=== PATIENT | male | born 1970 | race Caucasian/White ===

== ENCOUNTER → 2016-10-18 | Outpatient (REF) | payer OTHER ==
[2016-10-18 12:15] LABS: ALBUMIN 3.7 GM/DL (3.2-5.2); ALBUMIN/GLOBULIN RATIO 1.09 (1.00-1.93); ALKALINE PHOSPHATASE 84 U/L (45-117); ALT/SGPT 38 U/L (12-78); ANION GAP 4 MEQ/L (8-16); AST/SGOT 12 U/L (15-37); BILIRUBIN,TOTAL 0.4 MG/DL (0.2-1.0); BLOOD UREA NITROGEN 14 MG/DL (7-18); CALCIUM LEVEL 8.8 MG/DL (8.5-10.1); CARBON DIOXIDE LEVEL 28 MEQ/L (21-32); CHLORIDE LEVEL 105 MEQ/L (98-107); CHOLESTEROL LEVEL 275 MG/DL (<200); CREATININE FOR GFR 0.72 MG/DL (0.70-1.30); GLOMERULAR FILTRATION RATE > 60.0 (>60); GLUCOSE, FASTING 102 MG/DL (70-105); POTASSIUM SERUM 4.6 MEQ/L (3.5-5.1); SODIUM LEVEL 137 MEQ/L (136-145); TOTAL PROTEIN 7.1 GM/DL (6.4-8.2); TRIGLYCERIDES LEVEL 159 MG/DL (<150)
== END ==
LOC: M SFHCCLAY 07:14
PROVIDERS: ATTEND Family Medicine
DX: I10 Essential (primary) hypertension (principal); E78.2 Mixed hyperlipidemia; Z12.5 Encounter for screening for malignant neoplasm of prostate

== ENCOUNTER 2016-11-21 16:59 | Emergency (ER) | payer OTHER, BC ==
[~2016-11-21] VITALS: Ht 165.1 cm; Wt 110.5 kg
[2016-11-21] MEDS ORDERED: ATOR1TAB21 PO (17:17)
[2016-11-21] MEDS ORDERED: LISI10TA2 PO (17:17)
[2016-11-21] MEDS ORDERED: AMLO2.5T PO (17:17)
[2016-11-21] MEDS ORDERED: NAPROXEN 250 MG TAB PO ONE (17:30)
[2016-11-21] MEDS ORDERED: NAPR500T PO (18:08)
[2016-11-21 18:16] VITALS: BP 157/90
--- NOTE | 2016-11-21 18:37 | REP ---
HISTORY: Pain after hyperextension injury. COMPARISON: None. FINDINGS: There is no acute fracture, dislocation, subluxation, or joint effusion. Signed by Honorio Fink DO 11/21/2016 07:52 P
== END 2016-11-21 18:18 | disposition home or self-care (01) ==
LOC: M ED 16:59
DX: M77.11 Lateral epicondylitis, right elbow (principal); I10 Essential (primary) hypertension; E78.00 Pure hypercholesterolemia, unspecified; F17.210 Nicotine dependence, cigarettes, uncomplicated; Z88.8 Allergy status to other drugs, medicaments and biological substances; Z79.899 Other long term (current) drug therapy

== ENCOUNTER 2017-04-07 23:34 | Emergency (ER) | payer BC, OTHER ==
[~2017-04-07] VITALS: Ht 165.1 cm; Wt 102.2 kg
[~2017-04-07 23:34] MED LIST: AMLO2.5T PO; ATOR1TAB21 PO; LISI10TA2 PO; NAPR500T PO
[2017-04-07] MEDS ORDERED: ASPI81CH32 PO (23:51)
[2017-04-08] MEDS ORDERED: ASPIRIN 81 MG CHEW TABLET As Ordered ONE (00:02)
[2017-04-08] MEDS: NITROGLYCERIN 0.4 MG SUBL TABLET SL PRN ×5 (00:03→00:31)
[2017-04-08] MEDS ORDERED: NITROGLYCERIN 0.4 MG SUBL TABLET As Ordered ONE (00:03)
[2017-04-08] MEDS ORDERED: ONDANSETRON 4MG/2ML VIAL (J2405) IV ONE (00:15)
[2017-04-08] MEDS ORDERED: ASPIRIN 81 MG CHEW TABLET PO ONE (00:15)
[2017-04-08 00:28] LABS: BASO # 0.1 10^3/uL (0.0-0.2); BASO % 0.9 % (0.0-1.0); EOS # 0.5 10^3/uL (0.0-0.50); EOS % 5.9 % (0.0-3.0); IMMATURE GRANULOCYTE % 0.7 % (0-0); LYMPH # 2.4 10^3/uL (1.5-4.5); LYMPH % 26.4 % (24.0-44.0); MEAN CORPUSCULAR HEMOGLOBIN 31.4 pg (27.0-33.0); MEAN CORPUSCULAR HGB CONC 34.5 g/dl (32.0-36.5); MEAN CORPUSCULAR VOLUME 90.9 fl (80.0-96.0); MONO # 0.8 10^3/uL (0.0-0.8); MONO % 8.5 % (0.0-5.0); NEUTROPHILS # 5.3 10^3/uL (1.8-7.7); NEUTROPHILS % 57.6 % (36.0-66.0); PLATELET COUNT, AUTOMATED 266 10^3/uL (150-450); RED CELL DISTRIBUTION WIDTH 12.9 % (11.5-14.5); WHITE BLOOD COUNT 9.2 10^3/uL (4.0-10.0)
[2017-04-08] MEDS ORDERED: MORPHINE 4 MG/ML 1ML SYRINGE IV PRN (01:00)
[2017-04-08] MEDS ORDERED: NS 500 ML IV ONE (01:15)
[2017-04-08 01:31] LABS: ANION GAP 7 MEQ/L (8-16); BLOOD UREA NITROGEN 12 MG/DL (7-18); CARBON DIOXIDE LEVEL 29 MEQ/L (21-32); CHLORIDE LEVEL 104 MEQ/L (98-107); CREATININE FOR GFR 0.76 MG/DL (0.70-1.30); GLOMERULAR FILTRATION RATE > 60.0 (>60); GLUCOSE, FASTING 155 MG/DL (70-105); POTASSIUM SERUM 3.9 MEQ/L (3.5-5.1); SODIUM LEVEL 140 MEQ/L (136-145)
[2017-04-08] MEDS ORDERED: HEPARIN DRIP 25,000 UNITS in APPROPRIATE DILUENT 1 EA IV SCH ×2 (02:09→02:48)
[2017-04-08] MEDS ORDERED: HEPARIN SOD (PORCINE) 5000 UNITS/ML VIAL IV ONE (02:15)
[2017-04-08] MEDS ORDERED: CLOPIDOGREL 300 MG TAB (PLAVIX) PO ONE (02:15)
[2017-04-08] MEDS ORDERED: NITROGLYCERIN 2% OINT 1 GM *U/D* PKT TOP ONE (02:15)
[2017-04-08] MEDS ORDERED: METOPROLOL TART 25 MG TABLET PO ONE (02:15)
[2017-04-08 02:22] LABS: INR 0.97
[2017-04-08 03:11] VITALS: BP 121/60
--- NOTE | 2017-04-08 09:33 | REP ---
Clinical: Chest pain . Comparison: 12/09/2008 . Technique: PA and lateral. Findings: The mediastinum and cardiac silhouette are normal. The lung davis demonstrate chronic-appearing changes including evidence for prior granulomas disease without acute consolidation, effusion, or pneumothorax. The skeletal structures are intact and normal. Impression: Chronic stable changes. No acute cardiopulmonary process. Signed by Filiberto Contreras MD 04/08/2017 09:25 A
== END 2017-04-08 03:16 | disposition short-term general hospital (02) ==
LOC: M ED 23:34
DX: I20.0 Unstable angina (principal); I10 Essential (primary) hypertension; E78.5 Hyperlipidemia, unspecified; F17.200 Nicotine dependence, unspecified, uncomplicated; Z79.82 Long term (current) use of aspirin; Z79.899 Other long term (current) drug therapy
CPT/HCPCS: 71020; 80048; 82550; 82553; 85025; 85610; 85730; 93041; 94760; 96361; 96374; 96375; 99285; J2405

== ENCOUNTER 2017-04-19 08:14 | Observation (INO) | payer BC, OTHER ==
[~2017-04-19] VITALS: Ht 165.1 cm; Wt 113.0 kg
[~2017-04-19 08:14] MED LIST changes: +ASPI81CH32 PO
[2017-04-19] MEDS: NS 1,000 ML IV SCH ×2 (08:57→16:55)
[2017-04-19] MEDS ORDERED: ONDANSETRON 4MG/2ML VIAL (J2405) IV ONE (09:00)
[2017-04-19] MEDS: MORPHINE 4 MG/ML 1ML SYRINGE IV PRN ×2 (09:00→10:35)
[2017-04-19 09:39] LABS: BASO # 0.1 10^3/uL (0.0-0.2); BASO % 0.6 % (0.0-1.0); EOS # 0.5 10^3/uL (0.0-0.50); EOS % 3.2 % (0.0-3.0); IMMATURE GRANULOCYTE % 0.4 % (0-0); LYMPH # 1.8 10^3/uL (1.5-4.5); LYMPH % 11.8 % (24.0-44.0); MEAN CORPUSCULAR HEMOGLOBIN 31.2 pg (27.0-33.0); MEAN CORPUSCULAR VOLUME 91.7 fl (80.0-96.0); MONO # 0.9 10^3/uL (0.0-0.8); MONO % 6.1 % (0.0-5.0); NEUTROPHILS # 11.7 10^3/uL (1.8-7.7); NEUTROPHILS % 77.9 % (36.0-66.0); PLATELET COUNT, AUTOMATED 282 10^3/uL (150-450); RED CELL DISTRIBUTION WIDTH 12.7 % (11.5-14.5); WHITE BLOOD COUNT 15.1 10^3/uL (4.0-10.0)
--- NOTE | 2017-04-19 09:41 | REP ---
ACUTE ABDOMINAL SERIES: 04/19/2017 COMPARISON: Chest x-ray 04/08/2017. CLINICAL HISTORY: Abdominal pain. FINDINGS: PA CHEST: Lung davis are adequately inflated. There is no effusion, infiltrate, atelectasis or mass. I see no pleural thickening, apical scarring or pneumothorax. Heart size not enlarged. Aorta and airway grossly intact. Mediastinal and hilar contours stable. Visualized bones without acute finding. FLAT UPRIGHT ABDOMEN: Gas pattern is nonspecific. There is scattered stool and gas in the right transverse colon, less in the left colon. Small bowel loops are mostly fluid-filled. There are a few air-fluid levels in nondilated small bowel loops in the upper abdomen. This may reflect some gastroenteritis or ileus but no sign of obstruction. No free air. No abnormal calcifications or mass. Bones grossly intact. IMPRESSION: 1. Nonspecific gas pattern with a few air-fluid levels in nondilated small bowel loops upper abdomen, most small bowel loops fluid-filled. 2. No dilated colon, free air or mass. No obstruction. No abnormal calcifications. 3. PA chest without acute finding. Signed by Aric Elena MD 04/19/2017 08:26 P
[2017-04-19 09:52] LABS: ALBUMIN 3.9 GM/DL (3.2-5.2); ALBUMIN/GLOBULIN RATIO 1.15 (1.00-1.93); ALKALINE PHOSPHATASE 99 U/L (45-117); ALT/SGPT 34 U/L (12-78); ANION GAP 8 MEQ/L (8-16); AST/SGOT 10 U/L (7-37); BILIRUBIN,DIRECT 0.1 MG/DL (0.0-0.2); BILIRUBIN,TOTAL 0.4 MG/DL (0.2-1.0); BLOOD UREA NITROGEN 14 MG/DL (7-18); CALCIUM LEVEL 8.9 MG/DL (8.5-10.1); CARBON DIOXIDE LEVEL 26 MEQ/L (21-32); CHLORIDE LEVEL 106 MEQ/L (98-107); CREATININE FOR GFR 0.87 MG/DL (0.70-1.30); GLOMERULAR FILTRATION RATE > 60.0 (>60); GLUCOSE, FASTING 127 MG/DL (70-105); POTASSIUM SERUM 4.4 MEQ/L (3.5-5.1); SODIUM LEVEL 140 MEQ/L (136-145); TOTAL PROTEIN 7.3 GM/DL (6.4-8.2)
[2017-04-19] MEDS ORDERED: GASTROGRAFIN SOLUTION 30ML (Q9963) PO ONE ×2 (11:20→11:50)
[2017-04-19] MEDS ORDERED: ISOVUE-370 76% 100ML VIAL (Q9967) As Ordered ONE (12:31)
[2017-04-19] MEDS ORDERED: metroNIDAZOLE 500 MG in APPROPRIATE DILUENT 1 EA IV ONE (13:15)
[2017-04-19] MEDS ORDERED: CIPROFLOXACIN 400 MG in APPROPRIATE DILUENT 1 EA IV ONE (13:15)
--- NOTE | 2017-04-19 13:34 | REP ---
CT abdomen and pelvis with IV and oral contrast: 04/19/2017. Clinical history: Diverticulitis. Abdominal pain. Technique: Oral gastrographin mixture 10 ml in 290 ml saline for two doses per our bowel contrast protocol. Scanning through the abdomen and pelvis with both coronal and sagittal reconstructions provided. Comparison: Abdominal series today. Findings: CT abdomen: The lung bases showed minimal dependent atelectatic change without infiltrate or effusion. Heart not enlarged. There is no pericardial thickening or effusion. Liver not grossly enlarged. There is no splenomegaly, focal hepatic or splenic lesion nor intrahepatic biliary dilatation. No ascites. Gallbladder without calcified stone or mass. Pancreas unremarkable. Adrenal glands intact. Kidneys show function without obstruction, stone, mass or cyst. The aorta has a few calcifications without aneurysm. Small bowel loops are without dilatation, inflammatory change or other abnormality. Adnexa is seen and normal in the abdomen just above the level of the iliac crest. The right colon, transverse colon, both flexures and proximal left colon unremarkable, however the mid left colon shows a zone of edema, wall thickening and infiltration of pericolonic fat. There is fluid tracking along the lateral conal fascia and Gerota's fascia with evidence for diverticulitis with at least one and inflamed diverticula. Lung window review of all CT slices in the abdomen and pelvis shows no evidence of perforation or free air. Bone windows show no evidence of an acute bony finding in the lumbar, lower thoracic spine, their posterior elements or the visualized ribs. CT pelvis: Sacrum, pelvis, hips and SI joints grossly intact. Bladder partially filled without mass or wall thickening. There are calcifications in the prostate which is not grossly enlarged. There is no ventral or inguinal hernia and no pathologic sized inguinal adenopathy. Distal left colon and sigmoid show no sign of colitis or diverticulitis. Small bowel loops in the deep pelvis were unremarkable. A few scattered inguinal nodes are seen not enlarged. Impression: 1. Left mid colon with diverticulitis, pericolonic stranding and edema in the fat and some small amounts of adjacent fluid tracking in the peritoneal gutter and along Gerota's fascia. There is no perforation or abscess. Remainder of the colon grossly intact. No other significant finding. Signed by Aric Elena MD 04/19/2017 08:38 P
[2017-04-19] MEDS ORDERED: ONDANSETRON 4MG/2ML VIAL (J2405) IV PRN (14:00)
[2017-04-19] MEDS ORDERED: ACETAMINOPHEN TAB 650MG DOSE (2X325MG) PO PRN (14:00)
[2017-04-19] MEDS ORDERED: PERCOCET 5MG/325MG TAB PO PRN (14:00)
[2017-04-19] MEDS ORDERED: AMLO5TAB2 PO (14:24)
[2017-04-19] MEDS ORDERED: ROSU40TA PO (14:28)
[2017-04-19] MEDS ORDERED: LISI-542 PO (14:28)
[2017-04-19] MEDS ORDERED: CLOP75TA2 PO (14:28)
[2017-04-19] MEDS ORDERED: METO1TAB87 PO (14:28)
[2017-04-19] MEDS ORDERED: NITR4TASL SL (14:28)
[2017-04-19] MEDS ORDERED: NITROGLYCERIN 0.4 MG SUBL TABLET SL PRN (14:45)
[2017-04-19] MEDS: MORPHINE 2 MG/ML 1ML SYRINGE IV PRN ×2 (14:48→16:56)
--- NOTE | 2017-04-19 14:50 | HPEPDOC ---
[facility] Medical History & Physical Date of Admission Apr 19, 2017 Primary Care Physician: Cristo Olguin DO Attending Physician: CHERY OGDEN MD History and Physical CHIEF COMPLAINT: ABDOMINAL PAIN HISTORY OF PRESENT ILLNESS: 46 yo male s/p cardiac stent placement x2, recently released from [facility] a few days ago. Was at home last evening, in normal state of health and states that as he changed portion in his chair suddenly developed LLQ Abdominal pain that has been unchanged through the morning hours, and decided to come to ED for further evaluation. Denies: F/C/R, N/V/D, cough, productive sputum, hemoptysis, melena, hematochezia , dysuria, frequency or hematuria. PAST MEDICAL HISTORY: PR / CAD with recent cardiac stent placement x 2 Hypertension hyperlipidemia H/o Tobbacco use Occasional EtOH use PAST SURGICAL HISTORY: Cardiac stent placement x2 SOCIAL HISTORY: Lives at home with his , recently has quit smoking. Occasional EtOH use. Denies illicit drug use Denies sick contacts FAMILY HISTORY: Noncontributory ALLERGIES: Please see below. REVIEW OF SYSTEMS: CONSTITUTIONAL: No fever, chills, weight loss, nausea or vomiting . HEENT: No headache, lightheadedness, blurred or loss of vision. No difficulty with speech or swallow. CARDIOVASCULAR: No chest pain, palpitations, paroxysmal nocturnal dyspnea or lower extremity edema RESPIRATORY: No cough, productive sputum, wheeze or hemoptysis GENITOURINARY: No dysuria, frequency or hematuria MUSCULOSKELETAL: No bone, muscle or joint pain. GASTROINTESTINAL: Left lower quadrant abdominal pain started suddenly last evening. He states is become progressively worse throughout the day today. No Nausea, vomiting, change in appetite. Bowel movements are regular without hematochezia or melena. No bladder or bowel incontinence. SKIN: No complaint of lesions, abrasions or rashes NEUROLOGICAL: No blurred vision, headaches, parasthesias or paralysis PSYCHIATRIC: No depression, anxiety, audiovisual hallucinations. No suicidal ideations. ENDOCRINE: Denies history of diabetes or thyroid disorder. No history of endocrine abnormalities. HEMATOLOGIC/ONCOLOGIC: No history of bleeding or bruising disorder. No history of VTE LYMPHATIC: No lumps, bumps or swelling of neck, axilla or groin. No night sweats or weight loss. HOME MEDICATIONS: Please see below. PHYSICAL EXAMINATION: VITAL SIGNS: See below GENERAL APPEARANCE: NAD, AXOx3. HEENT: PERRLA, throat clear, neck supple, no JVD. CARDIOVASCULAR: RRR. LUNGS: CTA Bilaterally. ABDOMEN: soft, Normoactive BS, LLQ Tenderness without rebound. MUSCULOSKELETAL: no gross deformities. EXTREMITIES: no edema no calf tenderness. NEUROLOGICAL: CN's II-XII grossly intact, no gross motor/sensory deficits. PSYCHIATRIC: negative. LABORATORY DATA: See below. IMAGING: CT abd/pelvis: 1. Left mid colon with diverticulitis, pericolonic stranding and edema in the fat and some small amounts of adjacent fluid tracking in the peritoneal gutter and along Gerota's fascia. There is no perforation or abscess. Remainder of the colon grossly intact. No other significant finding. Abdominal series with one view CXR: 1. Nonspecific gas pattern with a few air-fluid levels in nondilated small bowel loops upper abdomen, most small bowel loops fluid-filled. 2. No dilated colon, free air or mass. No obstruction. No abnormal calcifications. 3. PA chest without acute finding. MICROBIOLOGY: Please see below. IPRESSION: 36-year-old gentleman status post coronary artery stent placement within the last week or so. Presents today to the emergency department with worsening left lower quadrant pain and diverticulitis seen on CT of the abdomen and pelvis. PROBLEM LIST: 1. Acute abdominal pain with acute diverticulitis. 2. Leukocytosis every does not appear to be acutely septic. 3. Recent PR / CAD with recent cardiac stent placement x 2: Without chest pain or related coronary symptoms 4. Hypertension 5. hyperlipidemia 6. H/o Tobbacco use 7. Occasional EtOH use: Does not appear to be having any withdrawal PLAN: Admit to general medical floor. Mechanical soft diet. IV Cipro and Flagyl. Pain control and repeat labs in the morning. DVT PROPHYLAXIS: Aspirin, Plavix teds sequentials and encouraged to ambulate. DISPOSITION: We'll observe him overnight. Anticipate home discharge tomorrow. Vital Signs Vital Signs Date Time Temp Pulse Resp B/P (MAP) Pulse Ox O2 Delivery O2 Flow Rate FiO2 04/19/17 12:59 80 95 04/19/17 12:47 116/66 (83) 04/19/17 12:20 16 04/19/17 08:44 98.4 Room Air Laboratory Data Labs 24H Laboratory Tests 2 04/19/17 08:30: Immature Granulocyte % (Auto) 0.4H, White Blood Count 15.1H, Red Blood Count 5.16, Hemoglobin 16.1, Hematocrit 47.3, Mean Corpuscular Volume 91.7, Mean Corpuscular Hemoglobin 31.2, Mean Corpuscular Hemoglobin Concent 34.0, Red Cell Distribution Width 12.7, Platelet Count 282, Neutrophils (%) (Auto) 77.9H, Lymphocytes (%) (Auto) 11.8L, Monocytes (%) (Auto) 6.1H, Eosinophils (%) (Auto) 3.2H, Basophils (%) (Auto) 0.6, Neutrophils # (Auto) 11.7H, Lymphocytes # (Auto ) 1.8, Monocytes # (Auto) 0.9H, Eosinophils # (Auto) 0.5, Basophils # (Auto) 0.1 , Immature Granulocyte # (Auto) 0.1H, Nucleated Red Blood Cells % (auto) 0.0, Anion Gap 8, Glomerular Filtration Rate > 60.0, Lactic Acid Level 1.0, Calcium Level 8.9, Aspartate Amino Transf (AST/SGOT) 10, Alanine Aminotransferase (ALT/ SGPT) 34, Alkaline Phosphatase 99, Total Bilirubin 0.4, Direct Bilirubin 0.1, Total Protein 7.3, Albumin 3.9, Albumin/Globulin Ratio 1.15, Lipase 102 04/19/17 10:31: Urine Appearance CLEAR, Urine Color YELLOW, Urine pH 5.0, Urine Specific [place] 1.019, Urine Protein NEGATIVE, Urine Glucose (UA) NEGATIVE, Urine Ketones NEGATIVE, Urine Urobilinogen 0.2, Urine Bilirubin NEGATIVE, Urine Leukocyte Esterase NEGATIVE, Urine Blood 1+H, Urine Nitrite NEGATIVE, Urine WBC (Auto) 0, Urine RBC (Auto) 3, Urine Hyaline Casts (Auto) 0, Urine Bacteria (Auto ) NEGATIVE, Urine Squamous Epithelial Cells 0, Urine Mucus (Auto) SMALL, Urine Sperm (Auto) CBC/BMP Laboratory Tests 04/19/17 08:30 Red Blood Count 5.16, Mean Corpuscular Volume 91.7, Mean Corpuscular Hemoglobin 31.2, Mean Corpuscular Hemoglobin Concent 34.0, Red Cell Distribution Width 12.7 , Neutrophils (%) (Auto) 77.9 H, Lymphocytes (%) (Auto) 11.8 L, Monocytes (%) ( Auto) 6.1 H, Eosinophils (%) (Auto) 3.2 H, Basophils (%) (Auto) 0.6, Neutrophils # (Auto) 11.7 H, Lymphocytes # (Auto) 1.8, Monocytes # (Auto) 0.9 H , Eosinophils # (Auto) 0.5, Basophils # (Auto) 0.1 Home Medications Scheduled (Aspirin 81 Low Dose) 81 Mg Chw, 81 MG PO QHS Amlodipine Besylate (Amlodipine Besylate) 5 Mg Tab, 5 MG PO DAILY Ciprofloxacin (Cipro) 500 Mg/5 Ml Jamee, 500 MG PO BID Clopidogrel Bisulfate (Clopidogrel) 75 Mg Tab, 75 MG PO DAILY Lisinopril (Lisinopril) 5 Mg Tab, 5 MG PO DAILY Metoprolol Tartrate (Metoprolol Tartrate) 25 Mg Tab, 25 MG PO BID Rosuvastatin Calcium (Rosuvastatin Calcium) 40 Mg Tab, 40 MG PO DAILY Scheduled PRN Metronidazole (Flagyl) 500 Mg Tab, 500 MG PO Q8H PRN for DAILY FOR 10 DAYS Nitroglycerin (Nitrostat) 0.4 Mg Subl, 0.4 MG SL NITRO PRN for CHEST PAIN Oxycodone/Acetaminophen (Oxycodone/Acetaminophen 5-325 mg) 1 Tab Tab, 1 TAB PO Q4HP PRN for PAIN Allergies Uncoded Allergies: muscle relaxants (Adverse Reaction, Intermediate, 04/19/17) KARLEY Owens DO Apr 19, 2017 14:50
[2017-04-19 15:45] VITALS: BP 140/73
[2017-04-19] MEDS: PERCOCET 5MG/325MG TAB PO PRN (19:58)
[2017-04-19] MEDS: METOPROLOL TART 25 MG TABLET PO SCH (19:59)
[2017-04-19] MEDS ORDERED: ASPIRIN 81 MG CHEW TABLET PO SCH (21:00)
[2017-04-19 22:00] VITALS: BP 128/61
[2017-04-19] MEDS: metroNIDAZOLE 500 MG in APPROPRIATE DILUENT 1 EA IV SCH (22:51)
[2017-04-20] MEDS ORDERED: CIPROFLOXACIN 400 MG in APPROPRIATE DILUENT 1 EA IV SCH (01:00)
[2017-04-20] MEDS: NS 1,000 ML IV SCH (01:44)
[2017-04-20] MEDS: PERCOCET 5MG/325MG TAB PO PRN ×2 (01:45→06:43)
[2017-04-20 06:00] VITALS: BP 126/56
[2017-04-20] MEDS: metroNIDAZOLE 500 MG in APPROPRIATE DILUENT 1 EA IV SCH (06:42)
[2017-04-20 07:16] LABS: MEAN CORPUSCULAR HGB CONC 33.6 g/dl (32.0-36.5); MEAN CORPUSCULAR VOLUME 92.2 fl (80.0-96.0); PLATELET COUNT, AUTOMATED 240 10^3/uL (150-450); RED CELL DISTRIBUTION WIDTH 12.9 % (11.5-14.5); WHITE BLOOD COUNT 14.1 10^3/uL (4.0-10.0)
[2017-04-20 07:37] LABS: ANION GAP 6 MEQ/L (8-16); BLOOD UREA NITROGEN 12 MG/DL (7-18); CALCIUM LEVEL 8.3 MG/DL (8.5-10.1); CARBON DIOXIDE LEVEL 28 MEQ/L (21-32); CHLORIDE LEVEL 104 MEQ/L (98-107); GLOMERULAR FILTRATION RATE > 60.0 (>60); GLUCOSE, FASTING 112 MG/DL (70-105); POTASSIUM SERUM 3.9 MEQ/L (3.5-5.1); SODIUM LEVEL 138 MEQ/L (136-145)
[2017-04-20] MEDS: METOPROLOL TART 25 MG TABLET PO SCH (08:53)
[2017-04-20 08:54] VITALS: BP 126/56
[2017-04-20] MEDS ORDERED: CLOPIDOGREL 75 MG TAB PO SCH (09:00)
[2017-04-20] MEDS ORDERED: LISINOPRIL 5 MG TAB PO SCH (09:00)
[2017-04-20] MEDS ORDERED: amLODIPine 5 MG TAB PO SCH (09:00)
[2017-04-20] MEDS ORDERED: ROSUVASTATIN 10 MG TAB (CRESTOR) PO SCH (09:00)
[2017-04-20] MEDS ORDERED: CIPR500S PO (09:53)
[2017-04-20] MEDS ORDERED: OXYC1TAB23 PO (09:53)
[2017-04-20] MEDS ORDERED: FLAG500T PO (09:53)
--- NOTE | 2017-04-20 10:28 | DS.PDOC ---
Discharge Summary General Date of Admission Apr 19, 2017 at 13:52 Date of Discharge 04/20/2017 Primary Care Physician: Cristo Olguin DO Attending Physician: KARLEY QUIROZ DO Discharge Summary CONSULTS: None PROCEDURES: None COMPLICATIONS: None ADMISSION / DISCHARGE DIAGNOSIS: 1. Acute adominal pain related to Acute diverticulitis 2. hisotory of CT / CAD with recent cardiac stent placement x 2 3, Hypertension 4. hyperlipidemia 5. H/o Tobbacco use 6. Occasional EtOH use BRIEF HOSPITAL COURSE: 46-year-old gentleman admitted on April 19 for acute abdominal pain, mild leukocytosis and diverticulitis. He's done well, remained afebrile. His leukocytosis is improved. We advanced his diet. She was able to tolerate. And he 'll be discharged on oral antibiotics and Percocet for pain when necessary. For further information regarding intake physical. Labs diagnostics please refer the H&P. PHYSICAL EXAMINATION ON DISCHARGE: VITAL SIGNS: Please see below. GENERAL: NAD, A&OX3 HEENT: PERRLA, throat clear, neck supple, no JVD CARDIOVASCULAR EXAMINATION: RRR RESPIRATORY EXAMINATION: CTA bilaterally ABDOMINAL EXAMINATION: Still some mild left lower quadrant tenderness without rebound. Normoactive bowel sounds. EXTREMITIES: no edema no calf tenderness SKIN: intact NEUROLOGICAL EXAMINATION: CN'S II-XII grossly intact PSYCHIATRIC EXAMINATION: stable DISCHARGE MEDICATIONS: See below DISCHARGE CONDITION: Good DISPOSITION: Discharged home DISCHARGE INSTRUCTIONS: Activity: As tolerated Diet: Regular Follow up: One week with Dr. Olguin. Seek medical attention should symptoms worsen or progress. Voiced understanding by patient and/or caregiver. TRANSITION OF CARE ISSUES: 1. Once diverticulitis is resolved, he'll likely need outpatient referral for colonoscopy TIME SPENT ON DISCHARGE: greater than 35 minutes Please CC: Dr. Olguin Vital Signs/I&Os Vital Signs Date Time Temp Pulse Resp B/P (MAP) Pulse Ox O2 Delivery O2 Flow Rate FiO2 04/20/17 10:09 20 Room Air 04/20/17 08:54 77 126/56 04/20/17 06:00 96.3 96 I&O- Last 24 Hours up to 6 AM 04/21/17 06:00 Intake Total 1680 ml Output Total 0 ml Balance 1680 ml Laboratory Data Labs 24H Laboratory Tests 2 04/19/17 10:31: Urine Appearance CLEAR, Urine Color YELLOW, Urine pH 5.0, Urine Specific [place] 1.019, Urine Protein NEGATIVE, Urine Glucose (UA) NEGATIVE, Urine Ketones NEGATIVE, Urine Urobilinogen 0.2, Urine Bilirubin NEGATIVE, Urine Leukocyte Esterase NEGATIVE, Urine Blood 1+H, Urine Nitrite NEGATIVE, Urine WBC (Auto) 0, Urine RBC (Auto) 3, Urine Hyaline Casts (Auto) 0, Urine Bacteria (Auto ) NEGATIVE, Urine Squamous Epithelial Cells 0, Urine Mucus (Auto) SMALL, Urine Sperm (Auto) 04/20/17 07:02: Nucleated Red Blood Cells % (auto) 0.0, Blood Urea Nitrogen 12, Creatinine 0.70 , Sodium Level 138, Potassium Level 3.9, Chloride Level 104, Carbon Dioxide Level 28, Anion Gap 6L, Glomerular Filtration Rate > 60.0, Calcium Level 8.3L, Phosphorus Level 3.0, Albumin 3.0#L CBC/BMP Laboratory Tests 04/20/17 07:02 Red Blood Count 4.61, Mean Corpuscular Volume 92.2, Mean Corpuscular Hemoglobin 31.0, Mean Corpuscular Hemoglobin Concent 33.6, Red Cell Distribution Width 12.9 , Anion Gap 6 L Discharge Medications Scheduled (Aspirin 81 Low Dose) 81 Mg Chw, 81 MG PO QHS, (Reported) Amlodipine Besylate (Amlodipine Besylate) 5 Mg Tab, 5 MG PO DAILY, (Reported) Ciprofloxacin (Cipro) 500 Mg/5 Ml Jamee, 500 MG PO BID Clopidogrel Bisulfate (Clopidogrel) 75 Mg Tab, 75 MG PO DAILY, (Reported) Lisinopril (Lisinopril) 5 Mg Tab, 5 MG PO DAILY, (Reported) Metoprolol Tartrate (Metoprolol Tartrate) 25 Mg Tab, 25 MG PO BID, (Reported) Rosuvastatin Calcium (Rosuvastatin Calcium) 40 Mg Tab, 40 MG PO DAILY, (Reported ) Scheduled PRN Metronidazole (Flagyl) 500 Mg Tab, 500 MG PO Q8H PRN for DAILY FOR 10 DAYS Nitroglycerin (Nitrostat) 0.4 Mg Subl, 0.4 MG SL NITRO PRN for CHEST PAIN, ( Reported) Oxycodone/Acetaminophen (Oxycodone/Acetaminophen 5-325 mg) 1 Tab Tab, 1 TAB PO Q4HP PRN for PAIN Allergies Uncoded Allergies: muscle relaxants (Adverse Reaction, Intermediate, 04/19/17) hallucinations QUIROZ,KARLEY B DO Apr 20, 2017 10:28
== END 2017-04-20 13:30 | disposition home or self-care (01) ==
LOC: M ED 08:14 → M ED INP 13:52 → M MS5PR 15:29
PROVIDERS: ADMIT Hospitalist; ATTEND Internal Medicine
DX: K57.32 Diverticulitis of large intestine without perforation or abscess without bleeding (principal); D72.829 Elevated white blood cell count, unspecified; I25.10 Atherosclerotic heart disease of native coronary artery without angina pectoris; I25.2 Old myocardial infarction; I10 Essential (primary) hypertension; E78.5 Hyperlipidemia, unspecified; Z87.891 Personal history of nicotine dependence; Z98.61 Coronary angioplasty status; Z79.899 Other long term (current) drug therapy; Z88.8 Allergy status to other drugs, medicaments and biological substances
CPT/HCPCS: 36415; 74022; 74177; 80048; 80069; 80076; 81001; 83605; 83690; 85025; 85027; 93041; 96365; 96366; 96375; 96376; 99285; J0744; J2405; Q9963; Q9967

== ENCOUNTER 2017-08-01 11:01 | Emergency (ER) | payer BC, OTHER ==
[2017-08-01] MEDS: MORPHINE 10 MG/ML 1ML VIAL (J2270) IM (11:30)
== END 2017-08-01 13:02 | disposition home or self-care (01) ==
LOC: M ED 11:01
DX: M76.891 Other specified enthesopathies of right lower limb, excluding foot (principal); I25.10 Atherosclerotic heart disease of native coronary artery without angina pectoris; I25.2 Old myocardial infarction; Z95.5 Presence of coronary angioplasty implant and graft; Z88.8 Allergy status to other drugs, medicaments and biological substances; Z79.899 Other long term (current) drug therapy; Z79.82 Long term (current) use of aspirin; Z79.02 Long term (current) use of antithrombotics/antiplatelets
CPT/HCPCS: J2270

== ENCOUNTER 2017-09-17 10:29 | Emergency (ER) | payer BC, OTHER ==
[2017-09-17 11:44] LABS: BASO # 0.1 10^3/uL (0.0-0.2); BASO % 0.9 % (0.0-1.0); EOS # 0.3 10^3/uL (0.0-0.50); EOS % 4.4 % (0.0-3.0); HEMOGLOBIN 14.1 g/dl (13.5-17.5); IMMATURE GRANULOCYTE % 0.6 % (0-3.0); LYMPH # 1.9 10^3/uL (1.5-4.5); LYMPH % 27.2 % (24.0-44.0); MEAN CORPUSCULAR HEMOGLOBIN 30.5 pg (27.0-33.0); MEAN CORPUSCULAR HGB CONC 33.6 g/dl (32.0-36.5); MEAN CORPUSCULAR VOLUME 90.7 fl (80.0-96.0); MONO # 0.8 10^3/uL (0.0-0.8); NEUTROPHILS # 3.9 10^3/uL (1.8-7.7); NEUTROPHILS % 55.9 % (36.0-66.0); PLATELET COUNT, AUTOMATED 226 10^3/uL (150-450); RED BLOOD COUNT 4.63 10^6/uL (4.30-6.10); RED CELL DISTRIBUTION WIDTH 13.2 % (11.5-14.5)
[2017-09-17 12:10] LABS: ALBUMIN 3.6 GM/DL (3.2-5.2); ALBUMIN/GLOBULIN RATIO 1.06 (1.00-1.93); ALKALINE PHOSPHATASE 66 U/L (45-117); ALT/SGPT 42 U/L (12-78); ANION GAP 4 MEQ/L (8-16); AST/SGOT 18 U/L (7-37); BILIRUBIN,DIRECT < 0.1 MG/DL (0.0-0.2); BILIRUBIN,TOTAL 0.3 MG/DL (0.2-1.0); BLOOD UREA NITROGEN 12 MG/DL (7-18); CALCIUM LEVEL 8.5 MG/DL (8.5-10.1); CARBON DIOXIDE LEVEL 28 MEQ/L (21-32); CHLORIDE LEVEL 107 MEQ/L (98-107); CREATININE FOR GFR 0.74 MG/DL (0.70-1.30); GLOMERULAR FILTRATION RATE > 60.0 (>60); GLUCOSE, FASTING 107 MG/DL (70-100); POTASSIUM SERUM 4.2 MEQ/L (3.5-5.1); SODIUM LEVEL 139 MEQ/L (136-145)
[2017-09-17 13:45] LABS: CK-MB VALUE MASS 1.1 NG/ML (<3.6); CPK CREATINE PHOSPHOKINASE 91 U/L (39-308); NT-PRO BNP 63 PG/ML (<125); TROPONIN I < 0.02 NG/ML (< 0.10)
== END 2017-09-17 14:31 | disposition home or self-care (01) ==
LOC: M ED 10:29
DX: R53.83 Other fatigue (principal); R00.2 Palpitations; R00.1 Bradycardia, unspecified; I25.10 Atherosclerotic heart disease of native coronary artery without angina pectoris; I25.2 Old myocardial infarction; I10 Essential (primary) hypertension; Z95.5 Presence of coronary angioplasty implant and graft; Z82.49 Family history of ischemic heart disease and other diseases of the circulatory system; Z82.3 Family history of stroke; Z80.9 Family history of malignant neoplasm, unspecified; Z79.82 Long term (current) use of aspirin; Z79.899 Other long term (current) drug therapy; Z88.8 Allergy status to other drugs, medicaments and biological substances
CPT/HCPCS: 71046

== ENCOUNTER → 2017-09-17 | Outpatient (CLI) | payer BC, OTHER | LOC: M EKG 15:01 | DX: R00.2 Palpitations (principal) | CPT/HCPCS: 93225 ==

== ENCOUNTER → 2017-10-15 | Outpatient (REF) | payer OTHER ==
[2017-10-15 12:04] LABS: ALBUMIN 3.9 GM/DL (3.2-5.2); ALBUMIN/GLOBULIN RATIO 1.11 (1.00-1.93); ALKALINE PHOSPHATASE 79 U/L (45-117); ALT/SGPT 47 U/L (12-78); ANION GAP 7 MEQ/L (8-16); AST/SGOT 21 U/L (7-37); BILIRUBIN,TOTAL 0.4 MG/DL (0.2-1.0); BLOOD UREA NITROGEN 14 MG/DL (7-18); CALCIUM LEVEL 8.9 MG/DL (8.5-10.1); CARBON DIOXIDE LEVEL 26 MEQ/L (21-32); CHLORIDE LEVEL 107 MEQ/L (98-107); CHOLESTEROL LEVEL 153 MG/DL (<200); CHOLESTEROL RISK RATIO 2.942 (<5); CREATININE FOR GFR 0.76 MG/DL (0.70-1.30); GLOMERULAR FILTRATION RATE > 60.0 (>60); GLUCOSE, FASTING 94 MG/DL (70-100); HDL CHOLESTEROL 52 MG/DL (>40); LDL CHOLESTEROL 63.2 MG/DL (<100); NON-HDL-C 101 MG/DL; POTASSIUM SERUM 4.8 MEQ/L (3.5-5.1); SODIUM LEVEL 140 MEQ/L (136-145); THYROID STIMULATING HORMONE 0.867 uIU/ML (0.358-3.740); TOTAL PROTEIN 7.4 GM/DL (6.4-8.2); TRIGLYCERIDES LEVEL 189 MG/DL (<150)
== END ==
LOC: M SFHCCLAY 09:42
DX: E78.2 Mixed hyperlipidemia (principal); I10 Essential (primary) hypertension

== ENCOUNTER 2018-01-25 07:50 | Emergency (ER) | payer BC, OTHER ==
[2018-01-25] MEDS: LIDOCAINE 1% MDV 20ML VIAL SC (08:15)
== END 2018-01-25 09:27 | disposition home or self-care (01) ==
LOC: M ED 07:50
DX: L05.01 Pilonidal cyst with abscess (principal); I10 Essential (primary) hypertension; I25.2 Old myocardial infarction; E78.00 Pure hypercholesterolemia, unspecified; K57.92 Diverticulitis of intestine, part unspecified, without perforation or abscess without bleeding; Z88.8 Allergy status to other drugs, medicaments and biological substances; Z87.891 Personal history of nicotine dependence; Z79.899 Other long term (current) drug therapy; Z79.82 Long term (current) use of aspirin; Z79.02 Long term (current) use of antithrombotics/antiplatelets; Z95.5 Presence of coronary angioplasty implant and graft
CPT/HCPCS: 87186

== ENCOUNTER 2018-03-16 12:56 | Emergency (ER) | payer BC, OTHER ==
[2018-03-16 14:07] LABS: HEMATOCRIT 43.8 % (42.0-52.0); HEMOGLOBIN 14.7 g/dl (13.5-17.5); MEAN CORPUSCULAR HEMOGLOBIN 30.4 pg (27.0-33.0); MEAN CORPUSCULAR HGB CONC 33.6 g/dl (32.0-36.5); MEAN CORPUSCULAR VOLUME 90.7 fl (80.0-96.0); PLATELET COUNT, AUTOMATED 246 10^3/uL (150-450); RED BLOOD COUNT 4.83 10^6/uL (4.30-6.10); RED CELL DISTRIBUTION WIDTH 13.2 % (11.5-14.5); WHITE BLOOD COUNT 9.5 10^3/uL (4.0-10.0)
[2018-03-16 14:27] LABS: ANION GAP 7 MEQ/L (8-16); BLOOD UREA NITROGEN 12 MG/DL (7-18); CALCIUM LEVEL 8.7 MG/DL (8.5-10.1); CARBON DIOXIDE LEVEL 28 MEQ/L (21-32); CHLORIDE LEVEL 107 MEQ/L (98-107); CREATININE FOR GFR 0.76 MG/DL (0.70-1.30); GLOMERULAR FILTRATION RATE > 60.0 (>60); GLUCOSE, FASTING 87 MG/DL (70-100); POTASSIUM SERUM 4.5 MEQ/L (3.5-5.1); SODIUM LEVEL 142 MEQ/L (136-145)
== END 2018-03-16 15:56 | disposition home or self-care (01) ==
LOC: M ED 12:56
DX: R04.0 Epistaxis (principal); I10 Essential (primary) hypertension; I25.10 Atherosclerotic heart disease of native coronary artery without angina pectoris; Z79.899 Other long term (current) drug therapy; Z79.82 Long term (current) use of aspirin; Z88.8 Allergy status to other drugs, medicaments and biological substances
CPT/HCPCS: 80048

== ENCOUNTER → 2018-09-10 | Outpatient (REF) | payer OTHER ==
[~2018-09-10] MED LIST changes: -AMLO2.5T PO; +AMLO2.5T3 PO; +AMLO5TAB6 PO; -ASPI81CH32 PO; +ASPI81CH33 PO; +BACT800T5 PO; +CIPR500S PO; +CLOP75TA2 PO; +FLAG500T PO; +LISI-542 PO; +METO1TAB87 PO; +NAPR-837 PO; -NAPR500T PO; +NITR4TASL SL; +OSTETAB3 PO; +OXYC1TAB23 PO; +PERC5TAB12 PO; +ROSU40TA3 PO
[2018-09-10 11:39] LABS: BASO # 0.1 10^3/uL (0.0-0.2); BASO % 0.9 % (0.0-1.0); EOS # 0.3 10^3/uL (0.0-0.50); EOS % 3.1 % (0.0-3.0); HEMATOCRIT 34.6 % (42.0-52.0); HEMOGLOBIN 11.2 g/dl (13.5-17.5); LYMPH # 1.7 10^3/uL (1.5-4.5); LYMPH % 21.5 % (24.0-44.0); MEAN CORPUSCULAR HEMOGLOBIN 29.6 pg (27.0-33.0); MEAN CORPUSCULAR HGB CONC 32.4 g/dl (32.0-36.5); MEAN CORPUSCULAR VOLUME 91.3 fl (80.0-96.0); MONO # 0.3 10^3/uL (0.0-0.8); MONO % 3.8 % (0.0-5.0); NEUTROPHILS # 5.6 10^3/uL (1.8-7.7); NEUTROPHILS % 69.3 % (36.0-66.0); PLATELET COUNT, AUTOMATED 297 10^3/uL (150-450); RED BLOOD COUNT 3.79 10^6/uL (4.30-6.10); WHITE BLOOD COUNT 8.1 10^3/uL (4.0-10.0)
[2018-09-10 12:12] LABS: ALBUMIN 3.7 GM/DL (3.2-5.2); ALT/SGPT 34 U/L (12-78); BILIRUBIN,TOTAL 0.3 MG/DL (0.2-1.0); BLOOD UREA NITROGEN 10 MG/DL (7-18); CALCIUM LEVEL 8.3 MG/DL (8.5-10.1); CARBON DIOXIDE LEVEL 28 MEQ/L (21-32); CHLORIDE LEVEL 104 MEQ/L (98-107); CREATININE FOR GFR 0.88 MG/DL (0.70-1.30); GLOMERULAR FILTRATION RATE > 60.0 (>60); GLUCOSE, FASTING 223 MG/DL (70-100); POTASSIUM SERUM 4.3 MEQ/L (3.5-5.1); SODIUM LEVEL 138 MEQ/L (136-145); TOTAL PROTEIN 7.1 GM/DL (6.4-8.2)
[2018-09-10 14:23] LABS: HEMOGLOBIN A1c 7.1 %
== END ==
LOC: M SFHCCLAY 09:08
PROVIDERS: ATTEND Nurse Practitioner Family
DX: I10 Essential (primary) hypertension (principal); R73.9 Hyperglycemia, unspecified

== ENCOUNTER 2019-03-09 10:01 | Emergency (ER) | payer OTHER, BC ==
[~2019-03-09] VITALS: Ht 165.1 cm; Wt 119.7 kg
[~2019-03-09 10:01] MED LIST changes: +LISI10TA15 PO; -LISI10TA2 PO; -ROSU40TA3 PO; +ROSU40TA4 PO
[2019-03-09] MEDS ORDERED: LISI10TA15 PO (10:12)
[2019-03-09] MEDS ORDERED: AMOX875T2 PO (10:12)
[2019-03-09] MEDS ORDERED: ALBUTEROL SULFATE 2.5 MG/0.5 ML INH NEB SOLN NEB ONE (10:30)
[2019-03-09] MEDS ORDERED: NS 500 ML IV ONE (10:30)
[2019-03-09 10:43] LABS: BASO # 0.1 10^3/uL (0.0-0.2); BASO % 0.8 % (0.0-1.0); EOS # 0.5 10^3/uL (0.0-0.5); HEMATOCRIT 46.2 % (42.0-52.0); HEMOGLOBIN 15.3 g/dl (13.5-17.5); LYMPH # 1.9 10^3/uL (1.5-5.0); MEAN CORPUSCULAR HEMOGLOBIN 29.4 pg (27.0-33.0); MEAN CORPUSCULAR HGB CONC 33.1 g/dl (32.0-36.5); MEAN CORPUSCULAR VOLUME 88.7 fl (80.0-96.0); MONO # 0.9 10^3/uL (0.0-0.8); MONO % 7.3 % (0.0-5.0); NEUTROPHILS # 8.6 10^3/uL (1.5-8.5); NEUTROPHILS % 71.4 % (36.0-66.0); PLATELET COUNT, AUTOMATED 284 10^3/uL (150-450); RED BLOOD COUNT 5.21 10^6/uL (4.30-6.10)
[2019-03-09] MEDS ORDERED: ISOVUE-370 76% 100ML VIAL (Q9967) As Ordered ONE (11:12)
[2019-03-09 11:15] LABS: ALBUMIN 3.9 GM/DL (3.2-5.2); BILIRUBIN,DIRECT 0.1 MG/DL (0.0-0.2); BILIRUBIN,TOTAL 0.5 MG/DL (0.2-1.0); TOTAL PROTEIN 7.8 GM/DL (6.4-8.2)
[2019-03-09] MEDS ORDERED: IPRATROPIUM 0.5MG/ALBUTEROL 2.5MG INH SOL UD 3ML (DUONEB)(J7620) NEB ONE ×2 (11:45→12:45)
--- NOTE | 2019-03-09 12:22 | REP ---
CT ABDOMEN/PELVIS WITH IV CONTRAST: TECHNIQUE: Axial contrast enhanced images from the lung bases to the pubic symphysis using 100 mL Isovue 370 intravenous contrast material with multiplanar reformations. Visualized lung bases demonstrate some mild accentuation of interstitial markings in the right middle lobe and left lower lobe, which may represent some mild atelectatic change or pneumonitis. There is diffuse fatty infiltration of the liver. The gallbladder is grossly unremarkable. There is no evidence of biliary dilatation. The spleen is normal in size with no intrinsic abnormality. The adrenals demonstrate no mass. The pancreas is unremarkable. Kidneys are unremarkable with no hydronephrosis. There is atherosclerotic calcification of the abdominal aorta without aneurysm. There is no adenopathy in the abdomen or pelvis. However, there is a mildly enlarged right inguinal lymph node, which is enhancing and measures 1.4 cm in short-axis dimension. This may be inflamed. There is no free air or free fluid in the abdomen or pelvis. No bowel wall thickening is seen. The appendix is normal. There is sigmoid diverticulosis without evidence of acute diverticulitis. The urinary bladder is not well distended and appears grossly unremarkable. Prostatic calcifications are noted. There are mild degenerative changes of the spine. IMPRESSION: Possible minor pneumonitis or atelectatic change right middle lobe and left lower lobe. Diffuse fatty infiltration of the liver. No free air or free fluid. Normal appendix. No abdominal wall hernia. In the right inguinal region, there is a mildly enlarged enhancing lymph node, 1.4 cm in short-axis dimension, possibly inflamed. Electronically Signed by Johnie Maurer MD 03/09/2019 02:38 P
[2019-03-09] MEDS ORDERED: methylPREDNISolone INJ 125 MG/2 ML VIAL (J2930) IV ONE (12:45)
[2019-03-09] MEDS ORDERED: PRED20TA PO (13:19)
[2019-03-09] MEDS ORDERED: PROAAER10 INH (13:19)
[2019-03-09 13:46] VITALS: BP 149/81
--- NOTE | 2019-03-10 06:50 | ED PDOC ---
Post-Departure Follow-Up vee norris faxed formal report of ct abd/p for fu Javier Post MD Mar 10, 2019 06:50
== END 2019-03-09 13:56 | disposition home or self-care (01) ==
LOC: M ED 10:01
DX: K76.0 Fatty (change of) liver, not elsewhere classified (principal); S39.011A Strain of muscle, fascia and tendon of abdomen, initial encounter; X58.XXXA Exposure to other specified factors, initial encounter; Y92.89 Other specified places as the place of occurrence of the external cause; J98.11 Atelectasis; R06.2 Wheezing; I25.2 Old myocardial infarction; I10 Essential (primary) hypertension; K57.92 Diverticulitis of intestine, part unspecified, without perforation or abscess without bleeding; E78.5 Hyperlipidemia, unspecified; Z88.8 Allergy status to other drugs, medicaments and biological substances; Z79.82 Long term (current) use of aspirin; Z79.899 Other long term (current) drug therapy
CPT/HCPCS: 74177; 80047; 80076; 81001; 83690; 85025; 94640; 96361; 96374; 99284; J2930; Q9967

== ENCOUNTER → 2019-03-19 | Outpatient (REF) | payer OTHER ==
[~2019-03-19] MED LIST changes: +AMOX875T2 PO; +PRED20TA PO; +PROAAER10 INH
[2019-03-19 12:02] LABS: BASO # 0.1 10^3/uL (0.0-0.2); BASO % 0.9 % (0.0-1.0); EOS # 0.3 10^3/uL (0.0-0.5); HEMATOCRIT 45.9 % (42.0-52.0); HEMOGLOBIN 14.8 g/dl (13.5-17.5); LYMPH # 2.1 10^3/uL (1.5-5.0); LYMPH % 22.7 % (24.0-44.0); MEAN CORPUSCULAR HEMOGLOBIN 29.4 pg (27.0-33.0); MEAN CORPUSCULAR HGB CONC 32.2 g/dl (32.0-36.5); MEAN CORPUSCULAR VOLUME 91.1 fl (80.0-96.0); MONO # 0.6 10^3/uL (0.0-0.8); MONO % 6.6 % (0.0-5.0); NEUTROPHILS % 65.4 % (36.0-66.0); PLATELET COUNT, AUTOMATED 286 10^3/uL (150-450); RED BLOOD COUNT 5.04 10^6/uL (4.30-6.10); WHITE BLOOD COUNT 9.2 10^3/uL (4.0-10.0)
[2019-03-19 12:20] LABS: ALBUMIN 3.9 GM/DL (3.2-5.2); ALT/SGPT 42 U/L (12-78); BILIRUBIN,TOTAL 0.6 MG/DL (0.2-1.0); BLOOD UREA NITROGEN 15 MG/DL (7-18); CALCIUM LEVEL 9.1 MG/DL (8.5-10.1); CARBON DIOXIDE LEVEL 28 MEQ/L (21-32); CHLORIDE LEVEL 103 MEQ/L (98-107); CHOLESTEROL LEVEL 226 MG/DL (<200); CHOLESTEROL RISK RATIO 4.035 (<5); CREATININE FOR GFR 0.82 MG/DL (0.70-1.30); GLOMERULAR FILTRATION RATE > 60.0 (>60); GLUCOSE, FASTING 130 MG/DL (70-100); HDL CHOLESTEROL 56 MG/DL (>40); LDL CHOLESTEROL 123 MG/DL (<100); NON-HDL-C 170 MG/DL; POTASSIUM SERUM 4.2 MEQ/L (3.5-5.1); SODIUM LEVEL 137 MEQ/L (136-145); TOTAL PROTEIN 7.2 GM/DL (6.4-8.2); TRIGLYCERIDES LEVEL 233 MG/DL (<150)
[2019-03-19 12:43] LABS: HEMOGLOBIN A1c 7.2 %
== END ==
LOC: M SFHCCLAY 08:38
PROVIDERS: ATTEND Nurse Practitioner Family
DX: E11.9 Type 2 diabetes mellitus without complications (principal); I10 Essential (primary) hypertension; E78.2 Mixed hyperlipidemia; I25.10 Atherosclerotic heart disease of native coronary artery without angina pectoris

== ENCOUNTER → 2019-06-27 | Outpatient (REF) | payer OTHER | LOC: M LAB REF 11:32 | PROVIDERS: ATTEND Physician Assistant | DX: J02.9 Acute pharyngitis, unspecified (principal) ==

== ENCOUNTER → 2019-08-11 | Outpatient (REF) | payer OTHER | LOC: M SFHCCLAY 14:02 | PROVIDERS: ATTEND Nurse Practitioner Family | DX: R05 Cough (principal); J40 Bronchitis, not specified as acute or chronic | CPT/HCPCS: 87486; 87581; 87633; 87798; U0002 ==

== ENCOUNTER → 2020-05-18 | Outpatient (REF) | payer OTHER ==
[~2020-05-18] MED LIST changes: +AMLO1TAB24 PO; -AMLO5TAB6 PO
[2020-05-18 11:31] LABS: BASO # 0.1 10^3/uL (0.0-0.2); BASO % 0.9 % (0.0-1.0); EOS # 0.3 10^3/uL (0.0-0.5); EOS % 3.1 % (0.0-3.0); HEMATOCRIT 47.9 % (42.0-52.0); HEMOGLOBIN 15.4 g/dl (13.5-17.5); LYMPH # 1.8 10^3/uL (1.5-5.0); LYMPH % 19.2 % (24.0-44.0); MEAN CORPUSCULAR HEMOGLOBIN 29.6 pg (27.0-33.0); MEAN CORPUSCULAR HGB CONC 32.2 g/dl (32.0-36.5); MEAN CORPUSCULAR VOLUME 91.9 fl (80.0-96.0); MONO # 0.7 10^3/uL (0.0-0.8); MONO % 7.4 % (0.0-5.0); NEUTROPHILS # 6.4 10^3/uL (1.5-8.5); NEUTROPHILS % 68.9 % (36.0-66.0); PLATELET COUNT, AUTOMATED 224 10^3/uL (150-450); RED BLOOD COUNT 5.21 10^6/uL (4.30-6.10); WHITE BLOOD COUNT 9.3 10^3/uL (4.0-10.0)
[2020-05-18 11:44] LABS: HEMOGLOBIN A1c 6.1 %
[2020-05-18 11:59] LABS: ALBUMIN 4.1 GM/DL (3.2-5.2); ALT/SGPT 29 U/L (12-78); BILIRUBIN,TOTAL 0.5 MG/DL (0.2-1.0); BLOOD UREA NITROGEN 16 MG/DL (7-18); CALCIUM LEVEL 9.4 MG/DL (8.5-10.1); CARBON DIOXIDE LEVEL 29 MEQ/L (21-32); CHLORIDE LEVEL 105 MEQ/L (98-107); CHOLESTEROL LEVEL 161 MG/DL (<200); CHOLESTEROL RISK RATIO 2.875 (<5); CREATININE FOR GFR 0.86 MG/DL (0.70-1.30); GLOMERULAR FILTRATION RATE > 60.0 (>60); GLUCOSE, FASTING 98 MG/DL (70-100); HDL CHOLESTEROL 56 MG/DL (>40); LDL CHOLESTEROL 76 MG/DL (<100); NON-HDL-C 105 MG/DL; POTASSIUM SERUM 4.5 MEQ/L (3.5-5.1); SODIUM LEVEL 137 MEQ/L (136-145); TOTAL PROTEIN 7.3 GM/DL (6.4-8.2); TRIGLYCERIDES LEVEL 145 MG/DL (<150)
== END ==
LOC: M SFHCCLAY 07:18
PROVIDERS: ATTEND Nurse Practitioner Family
DX: I10 Essential (primary) hypertension (principal); E78.2 Mixed hyperlipidemia; I25.10 Atherosclerotic heart disease of native coronary artery without angina pectoris; E11.9 Type 2 diabetes mellitus without complications; R10.31 Right lower quadrant pain

== ENCOUNTER → 2020-05-24 | Outpatient (REF) | payer OTHER ==
[2020-05-24 16:41] LABS: MALB URINE SIEMENS 37.3 MG/L; MAU/CREAT RATIO 29.3 MCG/MG (0.0-30.0)
== END ==
LOC: M SFHCCLAY 15:52
PROVIDERS: ATTEND Nurse Practitioner Family
DX: E11.9 Type 2 diabetes mellitus without complications (principal)

== ENCOUNTER → 2020-05-25 | Outpatient (CLI) | payer BC ==
--- NOTE | 2020-05-25 07:38 | REP ---
INDICATION: R31.9 HEMATURIA COMPARISON: None TECHNIQUE: Real time fletcher scale ultrasound examination using curved array transducer. FINDINGS: Bilateral kidneys are normal in contour, size, echogenicity, reniform shape and intrarenal vascularity. No hydronephrosis, nephrolithiasis, significant cystic or renal mass lesion. No perinephric fluid collections are identified. Right kidney measures 11.8 x 6.7 x 7.1 cm (RI 0.58). Left kidney measures 11.7 x 7.7 x 5.8 cm (RI 0.63) with incidental 1.1 cm midpole cyst noted. Bladder appears normal and currently measures 9.4 x 6.7 x 3.7 cm (152 cc) without wall thickening or mass lesion. IMPRESSION: Normal renal ultrasound. <Electronically signed by Filiberto Contreras > 05/25/20 0742
== END ==
LOC: M WHC 06:40
PROVIDERS: ATTEND Nurse Practitioner Family
DX: R31.9 Hematuria, unspecified (principal)

== ENCOUNTER → 2020-06-08 | Outpatient (CLI) | payer BC ==
[~2020-06-08] MED LIST changes: -LISI-542 PO; +LISI-898 PO
--- NOTE | 2020-06-08 08:33 | REP ---
INDICATION: R07.9, CHEST PAIN COMPARISON: 09/17/2017 TECHNIQUE: PA and lateral. FINDINGS: The mediastinum and cardiac silhouette are normal. The lung davis are clear and without acute consolidation, effusion, or pneumothorax. The skeletal structures are intact and normal. IMPRESSION: No acute cardiopulmonary process. If the patient remains symptomatic consider chest CT for further investigation. <Electronically signed by Filiberto Contreras > 06/08/20 [id number]
== END ==
LOC: M CLY 08:14
PROVIDERS: ATTEND Nurse Practitioner Family
DX: R07.9 Chest pain, unspecified (principal)

== ENCOUNTER → 2020-06-18 | Outpatient (CLI) | payer BC, OTHER ==
[~2020-06-18] MED LIST changes: +GASTROGRAFIN SOLUTION 30ML (Q9963) As Ordered ONE; +ISOVUE-370 76% 100ML VIAL As Ordered ONE
--- NOTE | 2020-06-19 06:05 | REP ---
INDICATION: RLQ ABD PAIN, CHEST PAIN COMPARISON: None TECHNIQUE: Axial noncontrast images from the thoracic inlet to the upper abdomen with coronal and sagittal reformations. This CT examination was performed using the following dose reduction techniques: Automated exposure control, adjustment of mA and/or kv according to the patient's size, and use of iterative reconstruction technique. FINDINGS: The bilateral lung davis are well aerated, symmetric and essentially clear. No acute consolidation, significant nodule, or mass lesion. No pleural effusion. No pneumothorax. Tracheobronchial tree is patent and without bronchiectasis. Mediastinum demonstrates moderate atherosclerotic changes to the thoracic aorta without aneurysm. Evidence for prior coronary artery stenting. No cardiomegaly or pericardial effusion. No axillary, hilar, or mediastinal adenopathy. Musculoskeletal structures are intact and without acute osseous abnormality. IMPRESSION: 1. No acute mediastinal or pleuroparenchymal process. 2. Atherosclerotic changes to the aorta along with evidence for prior coronary artery stenting. No cardiomegaly. <Electronically signed by Filiberto Contreras > 06/19/20 0601
--- NOTE | 2020-06-19 06:12 | REP ---
INDICATION: RLQ ABD PAIN, CHEST PAIN. COMPARISON: 03/09/2019 TECHNIQUE: Axial contrast-enhanced images from the lung bases to the pubic symphysis using oral and 100 cc Isovue 370 intravenous contrast material. Coronal and sagittal reformations obtained. This CT examination was performed using the following dose reduction techniques: Automated exposure control, adjustment of mA and/or kv according to the patient's size, and the use of iterative reconstruction technique. FINDINGS: Liver demonstrates mild fatty infiltration. Spleen, pancreas, gallbladder, bilateral adrenal glands and kidneys are normal. The enteric system including stomach, small, and large bowel appears normal. No evidence for obstruction or acute inflammatory process. Normal terminal ileum and appendix are identified in the right lower quadrant. Sigmoid diverticulosis noted without acute diverticulitis. Pelvis demonstrates normal bladder and chronic coarsened calcifications within the mildly prominent prostate gland. Mildly prominent inguinal lymph nodes again noted and essentially unchanged. No ascites. No free air. No intraperitoneal or retroperitoneal adenopathy. Abdominal aorta and vasculature appear normal. Musculoskeletal structures are intact and without acute osseous abnormality. IMPRESSION: 1. Hepatosteatosis. 2. Sigmoid diverticula without acute diverticulitis. 3. Chronic nonacute findings as above. 4. No acute abdominopelvic pathology. No ascites, focal inflammatory stranding, or free air. <Electronically signed by Filiberto Contreras > 06/19/20 0651
== END ==
LOC: M RAD 14:32
PROVIDERS: ATTEND Nurse Practitioner Family
DX: K57.30 Diverticulosis of large intestine without perforation or abscess without bleeding (principal); K76.0 Fatty (change of) liver, not elsewhere classified; R07.9 Chest pain, unspecified; R10.31 Right lower quadrant pain
CPT/HCPCS: 71250; 74177; Q9963; Q9967

== ENCOUNTER → 2020-07-25 | Outpatient (CLI) | payer BC, OTHER ==
[~2020-07-25] MED LIST changes: -GASTROGRAFIN SOLUTION 30ML (Q9963) As Ordered ONE; -ISOVUE-370 76% 100ML VIAL As Ordered ONE; +METF500T13 PO
== END ==
LOC: M LABSMTC 08:25
PROVIDERS: ATTEND Anesthesiology
DX: Z01.812 Encounter for preprocedural laboratory examination (principal); Z20.822 Contact with and (suspected) exposure to COVID-19

== ENCOUNTER 2020-07-30 07:05 | Day surgery (SDC) | payer BC, OTHER ==
[~2020-07-30] VITALS: Ht 162.6 cm; Wt 109.3 kg
[~2020-07-30 07:05] MED LIST changes: +NS 1,000 ML IV ONE
[2020-07-30] MEDS ORDERED: LIDOCAINE 2% 100MG/5ML SDV (FOR ANES.) As Ordered ONE (08:24)
[2020-07-30] MEDS ORDERED: propofoL 500 MG/50 ML VIAL As Ordered ONE ×2 (08:24→08:46)
--- NOTE | 2020-07-30 08:53 | ROOR ---
Patient Name: Carlos Blackmon Procedure Date: 07/30/2020 8:17 AM Date of : 1970 Age: 50 Room: [facility] Gender: Male Note Status: Finalized Procedure: Colonoscopy Indications: Screening for colorectal malignant neoplasm Providers: Monty Macedo MD Referring MD: Sherron Forde NP Requesting Provider: Medicines: Monitored Anesthesia Care Complications: No immediate complications. Procedure: Pre-Anesthesia Assessment: - Prior to the procedure, a History and Physical was performed, and patient medications and allergies were reviewed. The patient is competent. The risks and benefits of the procedure and the sedation options and risks were discussed with the patient. All questions were answered and informed consent was obtained. Patient identification and proposed procedure were verified by the physician, the nurse and the anesthesiologist in the procedure room. Mental Status Examination: alert and oriented. Airway Examination: normal oropharyngeal airway and neck mobility. Respiratory Examination: clear to auscultation. CV Examination: normal. Prophylactic Antibiotics: The patient does not require prophylactic antibiotics. Prior Anticoagulants: The patient has taken no previous anticoagulant or antiplatelet agents. ASA Grade Assessment: II - A patient with mild systemic disease. After reviewing the risks and benefits, the patient was deemed in satisfactory condition to undergo the procedure. The anesthesia plan was to use monitored anesthesia care (MAC). Immediately prior to administration of medications, the patient was re-assessed for adequacy to receive sedatives. The heart rate, respiratory rate, oxygen saturations, blood pressure, adequacy of pulmonary ventilation, and response to care were monitored throughout the procedure. The physical status of the patient was re-assessed after the procedure. The Colonoscope was introduced through the anus and advanced to the terminal ileum, with identification of the appendiceal orifice and IC valve. The colonoscopy was performed without difficulty. The patient tolerated the procedure well. The quality of the bowel preparation was good. The ileocecal valve, appendiceal orifice, and rectum were photographed. Scope insertion time was 2 minutes. Scope withdrawal time was 10 minutes. The total duration of the procedure was 12 minutes. Findings: The perianal and digital rectal examinations were normal. The terminal ileum appeared normal. Two sessile polyps were found in the descending colon and transverse colon. The polyps were 3 to 6 mm in size. These polyps were removed with a cold snare. Resection and retrieval were complete. Verification of patient identification for the specimen was done by the physician and nurse using the patient's name, date and medical record number. Estimated blood loss was minimal. A 15 mm polyp was found in the rectum. The polyp was sessile. The polyp was removed with a hot snare. Resection and retrieval were complete. Multiple small and large-mouthed diverticula were found in the sigmoid colon. There was no evidence of diverticular bleeding. Non-bleeding external and internal hemorrhoids were found during retroflexion. The hemorrhoids were medium-sized. Impression: - The examined portion of the ileum was normal. - Two 3 to 6 mm polyps in the descending colon and in the transverse colon, removed with a cold snare. Resected and retrieved. - One 15 mm polyp in the rectum, removed with a hot snare. Resected and retrieved. - Moderate diverticulosis in the sigmoid colon. There was no evidence of diverticular bleeding. - Non-bleeding external and internal hemorrhoids. Recommendation: - Patient has a contact number available for emergencies. The signs and symptoms of potential delayed complications were discussed with the patient. Return to normal activities tomorrow. Written discharge instructions were provided to the patient. - High fiber diet. - Continue present medications. - Await pathology results. - Repeat colonoscopy in 3 years for surveillance based on pathology results. - Telephone GI clinic for pathology results in 2 weeks. - Return to primary care physician. Procedure Code(s): --- Professional --- 81381, Colonoscopy, flexible; with removal of tumor(s), polyp(s), or other lesion(s) by snare technique Diagnosis Code(s): --- Professional --- Z12.11, Encounter for screening for malignant neoplasm of colon K64.8, Other hemorrhoids K63.5, Polyp of colon K62.1, Rectal polyp K57.30, Diverticulosis of large intestine without perforation or abscess without bleeding CPT copyright 2019 [employer]. All rights reserved. The codes documented in this report are preliminary and upon research coordinator review may be revised to meet current compliance requirements. Monty Macedo MD Monty Macedo MD 07/30/2020 8:52:52 AM Electronically signed by Monty Macedo MD Number of Addenda: 0 Note Initiated On: 07/30/2020 8:17 AM Estimated Blood Loss: Estimated blood loss was minimal.
[2020-07-30 09:15] VITALS: BP 127/87
== END 2020-07-30 09:23 | disposition home or self-care (01) ==
LOC: M OPP 07:05
PROVIDERS: ATTEND Internal Medicine Gastroenterology
DX: Z12.11 Encounter for screening for malignant neoplasm of colon (principal); K63.5 Polyp of colon; K62.1 Rectal polyp; K57.30 Diverticulosis of large intestine without perforation or abscess without bleeding; K64.8 Other hemorrhoids; E11.9 Type 2 diabetes mellitus without complications; I25.2 Old myocardial infarction; Z79.82 Long term (current) use of aspirin; Z79.84 Long term (current) use of oral hypoglycemic drugs; Z79.899 Other long term (current) drug therapy; Z88.8 Allergy status to other drugs, medicaments and biological substances; Z95.5 Presence of coronary angioplasty implant and graft; Z87.891 Personal history of nicotine dependence

== ENCOUNTER 2020-08-26 12:24 | Emergency (ER) | payer BC, OTHER ==
[~2020-08-26] VITALS: Ht 162.6 cm; Wt 112.5 kg
[~2020-08-26 12:24] MED LIST changes: -NS 1,000 ML IV ONE
[2020-08-26 13:24] LABS: HEMOGLOBIN 15.6 g/dl (13.5-17.5); MEAN CORPUSCULAR HEMOGLOBIN 30.9 pg (27.0-33.0); MEAN CORPUSCULAR HGB CONC 33.2 g/dl (32.0-36.5); MEAN CORPUSCULAR VOLUME 93.1 fl (80.0-96.0); PLATELET COUNT, AUTOMATED 230 10^3/uL (150-450); RED BLOOD COUNT 5.05 10^6/uL (4.30-6.10); WHITE BLOOD COUNT 8.8 10^3/uL (4.0-10.0)
[2020-08-26 13:34] LABS: INR 1.06
[2020-08-26 13:50] LABS: ALBUMIN 4.2 GM/DL (3.2-5.2); ALT/SGPT 41 U/L (12-78); BILIRUBIN,DIRECT 0.2 MG/DL (0.0-0.2); BILIRUBIN,TOTAL 0.8 MG/DL (0.2-1.0); TOTAL PROTEIN 7.5 GM/DL (6.4-8.2)
[2020-08-26] MEDS ORDERED: ISOVUE-370 76% 100ML VIAL As Ordered ONE (15:11)
--- NOTE | 2020-08-26 15:33 | REP ---
INDICATION: sob. COMPARISON: Comparison chest x-ray June 08, 2020. TECHNIQUE: Two views.. FINDINGS: The lungs are well inflated and free of infiltrate. The pleural angles are sharp. The heart size is normal. Pulmonary vasculature is not increased. No significant bony abnormality is seen. IMPRESSION: Negative chest x-ray. <Electronically signed by Kj Clarke > 08/26/20 [id number]
[2020-08-26 15:43] LABS: CK-MB VALUE MASS 3.3 NG/ML (<3.6); CPK CREATINE PHOSPHOKINASE 410 U/L (39-308); TROPONIN I < 0.02 NG/ML (< 0.10)
--- NOTE | 2020-08-26 15:49 | REP ---
INDICATION: rectal bleeding tenderness LLQ. COMPARISON: Multiple the latest 06/18/2020 TECHNIQUE: Standard contrast-enhanced axial technique after the intravenous administration of 100 cc Isovue 370. No oral bowel preparatory contrast was administered prior to the exam. FINDINGS: The lung bases are clear. The liver, gallbladder, spleen, pancreas, adrenal glands, and kidneys are unchanged. The abdominal aorta and para-aortic regions are unchanged and again seen to be within normal limits. There is no significant change in appearance of the bowel loops or the mesenteries. Scattered colonic diverticula are noted status quo. There is no free fluid or free air. There is no evidence of a mass or adenopathy. 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 Bone window technique throughout the examination shows the osseous structures to be stable and intact. IMPRESSION: There is no evidence of acute disease or significant change compared to the prior exam. <Electronically signed by Honorio Fink > 08/26/20 [id number]
[2020-08-26] MEDS ORDERED: NS 1,000 ML IV ONE (16:55)
[2020-08-26 18:44] VITALS: BP 151/90
--- NOTE | 2020-08-27 19:43 | ECGEPIP ---
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
== END 2020-08-26 18:48 | disposition home or self-care (01) ==
LOC: M ED 12:24
DX: K62.5 Hemorrhage of anus and rectum (principal); R06.09 Other forms of dyspnea; R53.83 Other fatigue; R00.1 Bradycardia, unspecified; I25.2 Old myocardial infarction; E11.9 Type 2 diabetes mellitus without complications; I10 Essential (primary) hypertension; E78.5 Hyperlipidemia, unspecified; Z95.5 Presence of coronary angioplasty implant and graft; Z88.8 Allergy status to other drugs, medicaments and biological substances; Z79.899 Other long term (current) drug therapy
CPT/HCPCS: 71046; 74177; 80047; 80076; 82550; 82553; 84484; 85027; 85610; 86850; 86900; 86901; 93005; 96360; 96361; 99284; Q9967

== ENCOUNTER 2020-12-01 08:32 | Emergency (ER) | payer BC, OTHER ==
[2020-12-01 09:19] LABS: BASO % 0.4 % (0.0-1.0); EOS # 0.2 10^3/uL (0.0-0.5); EOS % 1.9 % (0.0-3.0); HEMATOCRIT 46.7 % (42.0-52.0); LYMPH # 1.1 10^3/uL (1.5-5.0); LYMPH % 11.4 % (24.0-44.0); MEAN CORPUSCULAR HEMOGLOBIN 30.9 pg (27.0-33.0); MEAN CORPUSCULAR HGB CONC 34.3 g/dl (32.0-36.5); MEAN CORPUSCULAR VOLUME 90.2 fl (80.0-96.0); MONO # 0.5 10^3/uL (0.0-0.8); MONO % 5.4 % (2.0-8.0); NEUTROPHILS # 7.8 10^3/uL (1.5-8.5); NEUTROPHILS % 80.4 % (36.0-66.0); PLATELET COUNT, AUTOMATED 231 10^3/uL (150-450); RED BLOOD COUNT 5.18 10^6/uL (4.30-6.10); WHITE BLOOD COUNT 9.7 10^3/uL (4.0-10.0)
--- NOTE | 2020-12-01 09:24 | REP ---
INDICATION: DYSPNEA/COUGH. COMPARISON: 08/26/2020, CT 06/18/2020 TECHNIQUE: PA lateral FINDINGS: Lung davis are well inflated. There is no pleural effusion, lateral pleural thickening, apical scarring or pneumothorax. A few cuffed bronchi are seen in the perihilar regions that might reflect some reactive airway disease or bronchitis. No consolidation or atelectasis. The heart is not enlarged and there is no vascular redistribution or edema. The aorta is normal. Airway intact. Bony thorax shows some minor degenerative change, age-appropriate IMPRESSION: 1. Some minor perihilar changes of bronchitis or reactive airway disease without dense consolidation, pleural effusion or other parenchymal lung finding. Heart, mediastinal and hilar contours are normal. 2. Aorta and airway intact. Bony thorax normal for age. <Electronically signed by Aric Elena > 12/01/20 [id number]
[2020-12-01 10:17] LABS: ALBUMIN 3.8 GM/DL (3.2-5.2); ALT/SGPT 33 U/L (12-78); BILIRUBIN,DIRECT 0.2 MG/DL (0.0-0.2); BILIRUBIN,TOTAL 0.8 MG/DL (0.2-1.0); BLOOD UREA NITROGEN 17 MG/DL (7-18); CARBON DIOXIDE LEVEL 25 MEQ/L (21-32); CHLORIDE LEVEL 106 MEQ/L (98-107); CPK CREATINE PHOSPHOKINASE 155 U/L (39-308); CREATININE FOR GFR 0.72 MG/DL (0.70-1.30); GLOMERULAR FILTRATION RATE > 60.0 (>56); GLUCOSE, FASTING 111 MG/DL (70-100); MB/CK RELATIVE INDEX 1.29 (< OR =4); NT-PRO BNP 18 PG/ML (<125); POTASSIUM SERUM 3.9 MEQ/L (3.5-5.1); SODIUM LEVEL 138 MEQ/L (136-145); THYROID STIMULATING HORMONE 0.642 uIU/ML (0.358-3.740); TOTAL PROTEIN 7.2 GM/DL (6.4-8.2); TROPONIN I < 0.02 NG/ML (< 0.10)
[2020-12-01] MEDS ORDERED: ISOVUE-370 76% 100ML VIAL As Ordered ONE (11:55)
--- NOTE | 2020-12-01 12:24 | REP ---
INDICATION: chest pain, sob. COMPARISON: Comparison CT study of the chest without contrast June 18, 2020.. TECHNIQUE: Contrast dose: 75 ML of Isovue [address] technique: Helical scanning is acquired and overlapping 1.5 mm and contiguous 3 mm axial images are reformatted. In addition, maximum intensity projection and multiplanar re-formation images are generated in sagittal and coronal imaging projections. FINDINGS: There is good opacification in the pulmonary arterial tree. There is no evidence of vessel cut off or filling defect to suggest pulmonary embolus. Homogeneous opacity is seen in the thoracic aorta. There is no evidence of aneurysm or dissection. There is no evidence of pleural or pericardial effusion. No hilar or mediastinal mass or adenopathy is observed. Lung window settings demonstrate no evidence of infiltrate, mass, or significant pulmonary nodule. In the upper abdomen, normal adrenal glands. The visualized upper abdominal structures are unremarkable. IMPRESSION: No CT evidence of pulmonary embolus. No acute disease seen. <Electronically signed by Kj Clarke > 12/01/20 0894
[2020-12-01 14:00] VITALS: O2SAT 96
[2020-12-01 15:31] LABS: CK-MB VALUE MASS 2.1 NG/ML (<3.6); CPK CREATINE PHOSPHOKINASE 134 U/L (39-308); MB/CK RELATIVE INDEX 1.57 (< OR =4); TROPONIN I < 0.02 NG/ML (< 0.10)
[2020-12-01 16:45] VITALS: BP 112/76
--- NOTE | 2020-12-01 17:27 | ECGEPIP ---
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
--- NOTE | 2020-12-01 17:54 | ECGEPIP ---
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
== END 2020-12-01 17:03 | disposition home or self-care (01) ==
LOC: M ED 08:32
DX: R06.02 Shortness of breath (principal); I10 Essential (primary) hypertension; I25.2 Old myocardial infarction; E78.5 Hyperlipidemia, unspecified; Z95.5 Presence of coronary angioplasty implant and graft; Z79.899 Other long term (current) drug therapy; Z79.82 Long term (current) use of aspirin; Z88.8 Allergy status to other drugs, medicaments and biological substances; Z87.891 Personal history of nicotine dependence
CPT/HCPCS: 36415; 71046; 71275; 80048; 80076; 82550; 82553; 83880; 84443; 84484; 85025; 87798; 93005; 93041; 94760; 99285; Q9967

== ENCOUNTER → 2020-12-07 | Outpatient (REF) | payer OTHER ==
[2020-12-07 11:49] LABS: ALT/SGPT 29 U/L (12-78); BILIRUBIN,TOTAL 0.5 MG/DL (0.2-1.0); BLOOD UREA NITROGEN 17 MG/DL (7-18); CALCIUM LEVEL 9.3 MG/DL (8.5-10.1); CARBON DIOXIDE LEVEL 28 MEQ/L (21-32); CHLORIDE LEVEL 105 MEQ/L (98-107); CREATININE FOR GFR 0.68 MG/DL (0.70-1.30); GLOMERULAR FILTRATION RATE > 60.0 (>56); GLUCOSE, FASTING 116 MG/DL (70-100); POTASSIUM SERUM 4.1 MEQ/L (3.5-5.1); SODIUM LEVEL 138 MEQ/L (136-145); TOTAL PROTEIN 7.1 GM/DL (6.4-8.2)
== END ==
LOC: M SFHCCLAY 07:44
PROVIDERS: ATTEND Nurse Practitioner Family
DX: E11.9 Type 2 diabetes mellitus without complications (principal); I10 Essential (primary) hypertension; E78.2 Mixed hyperlipidemia; I25.10 Atherosclerotic heart disease of native coronary artery without angina pectoris; F10.10 Alcohol abuse, uncomplicated; K21.9 Gastro-esophageal reflux disease without esophagitis; K57.90 Diverticulosis of intestine, part unspecified, without perforation or abscess without bleeding; I70.0 Atherosclerosis of aorta; M54.31 Sciatica, right side; R10.31 Right lower quadrant pain

== ENCOUNTER → 2021-06-22 | Outpatient (REF) | payer OTHER ==
[~2021-06-22] MED LIST changes: -LISI-898 PO; -LISI10TA15 PO; +LISI10TA24 PO; +LISI5TAB11 PO
[2021-06-22 17:13] LABS: BASO # 0.1 10^3/uL (0.0-0.2); BASO % 1.1 % (0.0-1.0); EOS # 0.4 10^3/uL (0.0-0.5); EOS % 3.7 % (0.0-3.0); HEMATOCRIT 46.5 % (42.0-52.0); HEMOGLOBIN 15.4 g/dl (13.5-17.5); LYMPH % 20.9 % (24.0-44.0); MEAN CORPUSCULAR HEMOGLOBIN 30.3 pg (27.0-33.0); MEAN CORPUSCULAR HGB CONC 33.1 g/dl (32.0-36.5); MEAN CORPUSCULAR VOLUME 91.4 fl (80.0-96.0); MONO # 0.9 10^3/uL (0.0-0.8); MONO % 9.2 % (2.0-8.0); NEUTROPHILS # 6.2 10^3/uL (1.5-8.5); NEUTROPHILS % 64.4 % (36.0-66.0); PLATELET COUNT, AUTOMATED 252 10^3/uL (150-450); RED BLOOD COUNT 5.09 10^6/uL (4.30-6.10); WHITE BLOOD COUNT 9.6 10^3/uL (4.0-10.0)
[2021-06-22 17:53] LABS: ALBUMIN 3.9 GM/DL (3.2-5.2); ALT/SGPT 45 U/L (12-78); BILIRUBIN,TOTAL 0.3 MG/DL (0.2-1.0); BLOOD UREA NITROGEN 15 MG/DL (7-18); CALCIUM LEVEL 9.3 MG/DL (8.5-10.1); CARBON DIOXIDE LEVEL 26 MEQ/L (21-32); CHLORIDE LEVEL 106 MEQ/L (98-107); CHOLESTEROL LEVEL 146 MG/DL (<200); CHOLESTEROL RISK RATIO 2.754 (<5); CREATININE FOR GFR 0.68 MG/DL (0.70-1.30); FREE T4 0.79 NG/DL (0.76-1.46); GLOMERULAR FILTRATION RATE > 60.0 (>56); GLUCOSE, FASTING 127 MG/DL (70-100); HDL CHOLESTEROL 53 MG/DL (>40); LDL CHOLESTEROL 52 MG/DL (<100); NON-HDL-C 93 MG/DL; POTASSIUM SERUM 4.9 MEQ/L (3.5-5.1); SODIUM LEVEL 139 MEQ/L (136-145); THYROID STIMULATING HORMONE 0.758 uIU/ML (0.358-3.740); TOTAL PROTEIN 7.2 GM/DL (6.4-8.2); TRIGLYCERIDES LEVEL 207 MG/DL (<150)
[2021-06-22 20:41] LABS: HEMOGLOBIN A1c 6.3 %
== END ==
LOC: M SFHCCLAY 11:09
PROVIDERS: ATTEND Nurse Practitioner Family
DX: E11.9 Type 2 diabetes mellitus without complications (principal); I10 Essential (primary) hypertension; E78.2 Mixed hyperlipidemia; I25.10 Atherosclerotic heart disease of native coronary artery without angina pectoris; F10.10 Alcohol abuse, uncomplicated; K21.9 Gastro-esophageal reflux disease without esophagitis; K57.90 Diverticulosis of intestine, part unspecified, without perforation or abscess without bleeding; I70.0 Atherosclerosis of aorta

== ENCOUNTER → 2021-07-18 | Outpatient (CLI) | payer BC, OTHER | LOC: M CARPUL 07:48 | PROVIDERS: ATTEND Nurse Practitioner Family | DX: R06.02 Shortness of breath (principal) ==

== ENCOUNTER → 2021-09-28 | Outpatient (REF) | payer OTHER ==
[2021-09-28 16:16] LABS: BLOOD UREA NITROGEN 16 MG/DL (7-18); CALCIUM LEVEL 9.5 MG/DL (8.5-10.1); CARBON DIOXIDE LEVEL 29 MEQ/L (21-32); CHLORIDE LEVEL 100 MEQ/L (98-107); CREATININE FOR GFR 0.86 MG/DL (0.70-1.30); GLOMERULAR FILTRATION RATE > 60.0 (>56); GLUCOSE, FASTING 214 MG/DL (70-100); POTASSIUM SERUM 4.2 MEQ/L (3.5-5.1); SODIUM LEVEL 136 MEQ/L (136-145)
== END ==
LOC: M SFHCCLAY 10:09
PROVIDERS: ATTEND Nurse Practitioner Family
DX: I10 Essential (primary) hypertension (principal); S50.361A Insect bite (nonvenomous) of right elbow, initial encounter; X58.XXXA Exposure to other specified factors, initial encounter; Y92.9 Unspecified place or not applicable; Y93.9 Activity, unspecified; Y99.9 Unspecified external cause status

== ENCOUNTER 2022-02-25 22:40 | Emergency (ER) | payer BC, OTHER ==
[~2022-02-25] VITALS: Ht 165.1 cm; Wt 124.6 kg
[2022-02-25] MEDS ORDERED: methylPREDNISolone 125MG 2ML VIAL IV ONE (23:35)
[2022-02-25] MEDS ORDERED: FAMOTIDINE 20MG/2ML VIAL IVP ONE (23:35)
[2022-02-25] MEDS ORDERED: diphenhydrAMINE 50MG/ML VIAL (J1200) IV ONE (23:35)
[2022-02-25] MEDS ORDERED: NS 1,000 ML IV ONE (23:35)
[2022-02-25] MEDS: ALBUTEROL SULFATE 2.5 MG/0.5 ML INH NEB SOLN NEB SCH ×3 (23:50→23:53)
[2022-02-26 00:11] LABS: BASO % 0.3 % (0.0-1.0); EOS # 0.1 10^3/uL (0.0-0.5); EOS % 1.3 % (0.0-3.0); HEMATOCRIT 44.8 % (42.0-52.0); HEMOGLOBIN 14.8 g/dl (13.5-17.5); LYMPH # 1.8 10^3/uL (1.5-5.0); LYMPH % 16.9 % (24.0-44.0); MEAN CORPUSCULAR HEMOGLOBIN 30.3 pg (27.0-33.0); MEAN CORPUSCULAR VOLUME 91.6 fl (80.0-96.0); MONO # 0.4 10^3/uL (0.0-0.8); MONO % 3.5 % (2.0-8.0); NEUTROPHILS # 8.1 10^3/uL (1.5-8.5); NEUTROPHILS % 76.7 % (36.0-66.0); PLATELET COUNT, AUTOMATED 245 10^3/uL (150-450); RED BLOOD COUNT 4.89 10^6/uL (4.30-6.10); WHITE BLOOD COUNT 10.5 10^3/uL (4.0-10.0)
[2022-02-26 00:28] LABS: ALBUMIN 3.7 GM/DL (3.2-5.2); ALT/SGPT 56 U/L (12-78); BILIRUBIN,DIRECT 0.1 MG/DL (0.0-0.2); BILIRUBIN,TOTAL 0.3 MG/DL (0.2-1.0); BLOOD UREA NITROGEN 16 MG/DL (7-18); C REACTIVE PROTEIN QUANTITATIV 1.41 MG/DL (0.00-0.30); CALCIUM LEVEL 8.8 MG/DL (8.5-10.1); CARBON DIOXIDE LEVEL 22 MEQ/L (21-32); CHLORIDE LEVEL 104 MEQ/L (98-107); CREATININE FOR GFR 0.82 MG/DL (0.70-1.30); GLOMERULAR FILTRATION RATE > 60.0 (>56); GLUCOSE, FASTING 259 MG/DL (70-100); POTASSIUM SERUM 4.1 MEQ/L (3.5-5.1); SODIUM LEVEL 136 MEQ/L (136-145); TOTAL PROTEIN 7.2 GM/DL (6.4-8.2)
[2022-02-26 00:45] LABS: ERYTHROCYTE SEDIMENTATION RATE 14 mm/hr (0-20)
[2022-02-26] MEDS ORDERED: EPINEPHrine INJ 1 MG/ML 1ML AMP IM STA (02:06)
[2022-02-26 02:30] LABS: CPK CREATINE PHOSPHOKINASE 119 U/L (39-308)
[2022-02-26 04:30] VITALS: BP 137/63
[2022-02-26] MEDS ORDERED: PRED20TA PO (04:54)
[2022-02-26] MEDS ORDERED: HYDR-3490 PO (04:54)
[2022-02-26] MEDS ORDERED: PEPC1TAB5 PO (04:54)
[2022-02-26] MEDS ORDERED: CETI10CH PO (04:54)
[2022-02-26] MEDS ORDERED: EPIP0.3I2 IM (04:59)
== END 2022-02-26 05:27 | disposition home or self-care (01) ==
LOC: M ED 22:40
DX: T78.2XXA Anaphylactic shock, unspecified, initial encounter (principal); I10 Essential (primary) hypertension; E78.5 Hyperlipidemia, unspecified; I25.2 Old myocardial infarction; J44.9 Chronic obstructive pulmonary disease, unspecified; Z88.1 Allergy status to other antibiotic agents; Z79.82 Long term (current) use of aspirin; Z79.899 Other long term (current) drug therapy; Z79.811 Long term (current) use of aromatase inhibitors; Z79.02 Long term (current) use of antithrombotics/antiplatelets
CPT/HCPCS: 71046; 80048; 80076; 82550; 84484; 85025; 85652; 86140; 86850; 86900; 86901; 87635; 93005; 94640; 94760; 96361; 96372; 96374; 99284; J0171; J1200; J2930

== ENCOUNTER → 2022-04-18 | Outpatient (REF) | payer OTHER ==
[~2022-04-18] MED LIST changes: +CETI10CH PO; +EPIP0.3I2 IM; +HYDR-3490 PO; +PEPC1TAB5 PO
[2022-04-18 17:24] LABS: BASO # 0.1 10^3/uL (0.0-0.2); BASO % 1.2 % (0.0-1.0); EOS # 0.3 10^3/uL (0.0-0.5); EOS % 4.2 % (0.0-3.0); HEMATOCRIT 46.6 % (42.0-52.0); HEMOGLOBIN 14.9 g/dl (13.5-17.5); LYMPH # 1.6 10^3/uL (1.5-5.0); MEAN CORPUSCULAR HEMOGLOBIN 29.6 pg (27.0-33.0); MEAN CORPUSCULAR VOLUME 92.6 fl (80.0-96.0); MONO # 0.6 10^3/uL (0.0-0.8); MONO % 7.3 % (2.0-8.0); NEUTROPHILS # 5.1 10^3/uL (1.5-8.5); NEUTROPHILS % 65.5 % (36.0-66.0); PLATELET COUNT, AUTOMATED 224 10^3/uL (150-450); RED BLOOD COUNT 5.03 10^6/uL (4.30-6.10); WHITE BLOOD COUNT 7.7 10^3/uL (4.0-10.0)
[2022-04-18 18:02] LABS: ALBUMIN 3.7 G/DL (3.2-5.2); ALKALINE PHOSPHATASE 96 U/L (46-116); ALT/SGPT 47 U/L (7.0-40); AST/SGOT 22 U/L (<34); BILIRUBIN,TOTAL 0.3 MG/DL (0.3-1.2); BLOOD UREA NITROGEN 13 MG/DL (9-23); CARBON DIOXIDE LEVEL 28 MMOL/L (20-31); CHLORIDE LEVEL 100 MMOL/L (98-107); CHOLESTEROL LEVEL 231 MG/DL (<200); CHOLESTEROL RISK RATIO 5.05 (<5); CREATININE FOR GFR 0.65 MG/DL (0.70-1.30); GLOMERULAR FILTRATION RATE > 60.0 (>56); GLUCOSE, FASTING 244 MG/DL (60-100); HDL CHOLESTEROL 45.7 MG/DL (>40); LDL CHOLESTEROL 131.1 MG/DL (<100); NON-HDL-C 185 MG/DL; POTASSIUM SERUM 4.8 MMOL/L (3.5-5.1); SODIUM LEVEL 136 MMOL/L (136-145); TOTAL PROTEIN 6.8 G/DL (5.7-8.2); TRIGLYCERIDES LEVEL 271 MG/DL (<150)
[2022-04-18 18:05] LABS: THYROID STIMULATING HORMONE 0.994 uIU/ML (0.55-4.78)
[2022-04-18 18:07] LABS: FREE T4 0.91 NG/DL (0.89-1.76)
[2022-04-18 19:29] LABS: HEMOGLOBIN A1c 9.9 % (4.0-6.0)
== END ==
LOC: M SFHCCLAY 09:45
PROVIDERS: ATTEND Nurse Practitioner Family
DX: J45.909 Unspecified asthma, uncomplicated (principal); I10 Essential (primary) hypertension; R06.02 Shortness of breath; E11.9 Type 2 diabetes mellitus without complications; E78.2 Mixed hyperlipidemia; I25.10 Atherosclerotic heart disease of native coronary artery without angina pectoris; F10.10 Alcohol abuse, uncomplicated; K21.9 Gastro-esophageal reflux disease without esophagitis; K57.90 Diverticulosis of intestine, part unspecified, without perforation or abscess without bleeding; I70.0 Atherosclerosis of aorta; R10.31 Right lower quadrant pain; S50.361A Insect bite (nonvenomous) of right elbow, initial encounter; W57.XXXA Bitten or stung by nonvenomous insect and other nonvenomous arthropods, initial encounter

== ENCOUNTER → 2022-06-27 | Outpatient (CLI) | payer BC, OTHER | LOC: M PLAIMG 12:30 | PROVIDERS: ATTEND Nurse Practitioner Family | DX: I70.0 Atherosclerosis of aorta (principal) ==

== ENCOUNTER → 2022-09-27 | Outpatient (REF) | payer OTHER ==
[2022-09-27 12:07] LABS: ALBUMIN 3.7 G/DL (3.2-5.2); ALKALINE PHOSPHATASE 83 U/L (46-116); ALT/SGPT 50 U/L (7.0-40); AST/SGOT 20 U/L (<34); BILIRUBIN,TOTAL 0.4 MG/DL (0.3-1.2); BLOOD UREA NITROGEN 13 MG/DL (9-23); CALCIUM LEVEL 9.1 MG/DL (8.5-10.1); CARBON DIOXIDE LEVEL 28 MMOL/L (20-31); CHLORIDE LEVEL 102 MMOL/L (98-107); CREATININE FOR GFR 0.64 MG/DL (0.70-1.30); GLOMERULAR FILTRATION RATE > 60.0 (>56); GLUCOSE, FASTING 250 MG/DL (60-100); POTASSIUM SERUM 4.3 MMOL/L (3.5-5.1); SODIUM LEVEL 136 MMOL/L (136-145); TOTAL PROTEIN 6.5 G/DL (5.7-8.2)
[2022-09-27 12:34] LABS: HEMOGLOBIN A1c 10.6 % (4.0-6.0)
== END ==
LOC: M SFHCCLAY 08:25
PROVIDERS: ATTEND Nurse Practitioner Family
DX: E11.9 Type 2 diabetes mellitus without complications (principal)

== ENCOUNTER 2022-12-24 11:58 | Emergency (ER) | payer BC, OTHER ==
[~2022-12-24] VITALS: Ht 165.1 cm; Wt 113.6 kg
[2022-12-24 11:59] VITALS: TEMP 97.7
[2022-12-24] MEDS ORDERED: CHLO125TA PO (12:15)
[2022-12-24] MEDS ORDERED: METF10004 PO (12:15)
[2022-12-24] MEDS ORDERED: ALBUTEROL SULFATE 2.5MG/0.5ML INH NEB SOLN INH ONE (12:25)
[2022-12-24] MEDS ORDERED: ONDANSETRON 4MG 2ML VIAL IV ONE (12:25)
[2022-12-24] MEDS ORDERED: IPRATROPIUM 0.5MG/ALBUTEROL 2.5MG INH SOL UD 3ML (DUONEB) NEB ONE (12:25)
[2022-12-24] MEDS ORDERED: methylPREDNISolone 125MG 2ML VIAL IV ONE (12:25)
[2022-12-24] MEDS ORDERED: SUCRALFATE SUSP 1GM/10ML UD PO ONE (12:25)
[2022-12-24] MEDS ORDERED: NS 1,000 ML IV ONE (12:25)
[2022-12-24] MEDS ORDERED: MORPHINE 2 MG/ML 1ML VIAL IV PRN (12:25)
[2022-12-24 12:36] LABS: BASO # 0.1 10^3/uL (0.0-0.2); BASO % 0.4 % (0.0-1.0); EOS % 0.1 % (0.0-3.0); HEMATOCRIT 47.3 % (42.0-52.0); HEMOGLOBIN 16.1 g/dl (13.5-17.5); LYMPH # 0.7 10^3/uL (1.5-5.0); LYMPH % 4.2 % (24.0-44.0); MEAN CORPUSCULAR HEMOGLOBIN 30.6 pg (27.0-33.0); MEAN CORPUSCULAR VOLUME 89.8 fl (80.0-96.0); MONO # 0.5 10^3/uL (0.0-0.8); MONO % 3.3 % (2.0-8.0); NEUTROPHILS # 14.8 10^3/uL (1.5-8.5); NEUTROPHILS % 91.4 % (36.0-66.0); PLATELET COUNT, AUTOMATED 275 10^3/uL (150-450); RED BLOOD COUNT 5.27 10^6/uL (4.30-6.10); WHITE BLOOD COUNT 16.2 10^3/uL (4.0-10.0)
[2022-12-24 12:47] LABS: INR 1.11
[2022-12-24 12:48] LABS: PARTIAL THROMBOPLASTIN TIME 25.1 SECONDS (24.8-34.2)
[2022-12-24 13:00] LABS: CK-MB VALUE MASS 1.4 NG/ML (<3.6); LIPASE 34 U/L (12-53)
[2022-12-24 13:02] LABS: ALBUMIN 3.6 G/DL (3.2-5.2); ALKALINE PHOSPHATASE 74 U/L (46-116); ALT/SGPT 55 U/L (7.0-40); AST/SGOT 32 U/L (<34); BILIRUBIN,DIRECT 0.4 MG/DL (<0.4); BLOOD UREA NITROGEN 19 MG/DL (9-23); CALCIUM LEVEL 8.9 MG/DL (8.5-10.1); CARBON DIOXIDE LEVEL 31 MMOL/L (20-31); CHLORIDE LEVEL 97 MMOL/L (98-107); CREATININE FOR GFR 0.83 MG/DL (0.70-1.30); GLOMERULAR FILTRATION RATE > 60.0 (>56); GLUCOSE, FASTING 229 MG/DL (60-100); SODIUM LEVEL 139 MMOL/L (136-145); TOTAL PROTEIN 6.5 G/DL (5.7-8.2)
[2022-12-24 13:03] LABS: THYROID STIMULATING HORMONE 1.005 uIU/ML (0.55-4.78)
[2022-12-24 13:10] LABS: CPK CREATINE PHOSPHOKINASE 69 U/L (46-171); MB/CK RELATIVE INDEX 2.02 (< OR =4)
[2022-12-24] MEDS ORDERED: ISOVUE-370 76% 100ML VIAL As Ordered ONE (13:23)
[2022-12-24 14:40] LABS: CK-MB VALUE MASS 1.4 NG/ML (<3.6)
[2022-12-24 14:46] LABS: MB/CK RELATIVE INDEX 2.15 (< OR =4)
[2022-12-24] MEDS ORDERED: NITROGLYCERIN 2% OINT 1 GM *U/D* PKT TOP ONE (15:10)
[2022-12-24] MEDS ORDERED: HEPARIN DRIP 25,000 UNITS in IV 1 EA IV SCH ×2 (15:10→18:30)
[2022-12-24] MEDS ORDERED: HEPARIN SOD (PORCINE) 5000UNITS/ML 1ML VIAL/SYRINGE IV ONE (15:10)
[2022-12-24] MEDS ORDERED: MED REC IN PROGRESS XX SCH (18:00)
[2022-12-24] MEDS ORDERED: EPIP0.3I2 INJ (18:23)
[2022-12-24] MEDS ORDERED: AMLO1TAB25 PO (18:23)
[2022-12-24] MEDS ORDERED: HOME MED LIST COMPLETE! XX SCH (18:25)
[2022-12-24] MEDS ORDERED: HEPARIN SOD (PORCINE) 5000UNITS/ML 1ML VIAL/SYRINGE IV PRN (18:30)
[2022-12-24] MEDS: NITROGLYCERIN 2% OINT 1 GM *U/D* PKT TOP SCH (22:12)
[2022-12-25 04:06] VITALS: BP 116/62
[2022-12-25] MEDS: NITROGLYCERIN 2% OINT 1 GM *U/D* PKT TOP SCH (04:06)
[2022-12-25 05:46] VITALS: BP 128/74; O2SAT 97
== END 2022-12-25 06:37 | disposition short-term general hospital (02) ==
LOC: M ED 11:58
DX: I21.4 Non-ST elevation (NSTEMI) myocardial infarction (principal); E11.9 Type 2 diabetes mellitus without complications; I10 Essential (primary) hypertension; I45.81 Long QT syndrome; I44.4 Left anterior fascicular block; Z87.891 Personal history of nicotine dependence; Z86.79 Personal history of other diseases of the circulatory system; Z88.8 Allergy status to other drugs, medicaments and biological substances; Z79.82 Long term (current) use of aspirin; Z79.4 Long term (current) use of insulin; Z79.899 Other long term (current) drug therapy
CPT/HCPCS: 71045; 71275; 80048; 80076; 82550; 82553; 83690; 83880; 84439; 84443; 84484; 85025; 85610; 85730; 87486; 87581; 87633; 87798; 93005; 93041; 94640; 94760; 96374; 96375; 99285; J2405; J2930; Q9967

== ENCOUNTER → 2022-12-28 | Outpatient (REF) | payer BC, OTHER ==
[~2022-12-28] MED LIST changes: +AMLO1TAB25 PO; +CHLO125TA PO; +EPIP0.3I2 INJ; +METF10004 PO
== END ==
LOC: M LAB REF 16:32
PROVIDERS: ATTEND Nurse Practitioner Family
DX: L05.01 Pilonidal cyst with abscess (principal)

== ENCOUNTER → 2023-01-02 | Outpatient (REF) | payer BC, OTHER ==
[2023-01-02 18:11] LABS: BASO # 0.1 10^3/uL (0.0-0.2); BASO % 0.9 % (0.0-1.0); EOS # 0.2 10^3/uL (0.0-0.5); EOS % 1.7 % (0.0-3.0); HEMATOCRIT 45.6 % (42.0-52.0); LYMPH # 2.3 10^3/uL (1.5-5.0); LYMPH % 21.9 % (24.0-44.0); MEAN CORPUSCULAR HEMOGLOBIN 30.4 pg (27.0-33.0); MEAN CORPUSCULAR HGB CONC 32.9 g/dl (32.0-36.5); MEAN CORPUSCULAR VOLUME 92.3 fl (80.0-96.0); MONO # 0.8 10^3/uL (0.0-0.8); MONO % 7.6 % (2.0-8.0); NEUTROPHILS # 7.1 10^3/uL (1.5-8.5); NEUTROPHILS % 66.6 % (36.0-66.0); PLATELET COUNT, AUTOMATED 307 10^3/uL (150-450); RED BLOOD COUNT 4.94 10^6/uL (4.30-6.10); WHITE BLOOD COUNT 10.6 10^3/uL (4.0-10.0)
[2023-01-02 18:37] LABS: ALBUMIN 3.9 G/DL (3.2-5.2); ALKALINE PHOSPHATASE 94 U/L (46-116); ALT/SGPT 40 U/L (7.0-40); AST/SGOT 14 U/L (<34); BILIRUBIN,TOTAL 0.5 MG/DL (0.3-1.2); BLOOD UREA NITROGEN 18 MG/DL (9-23); CALCIUM LEVEL 9.3 MG/DL (8.5-10.1); CARBON DIOXIDE LEVEL 32 MMOL/L (20-31); CHLORIDE LEVEL 98 MMOL/L (98-107); CHOLESTEROL LEVEL 153 MG/DL (<200); CHOLESTEROL RISK RATIO 3.59 (<5); CREATININE FOR GFR 0.95 MG/DL (0.70-1.30); FREE T4 0.91 NG/DL (0.89-1.76); GLOMERULAR FILTRATION RATE > 60.0 (>56); GLUCOSE, FASTING 145 MG/DL (60-100); HDL CHOLESTEROL 42.6 MG/DL (>40); LDL CHOLESTEROL 58.8 MG/DL (<100); NON-HDL-C 110.4 MG/DL; SODIUM LEVEL 139 MMOL/L (136-145); THYROID STIMULATING HORMONE 1.169 uIU/ML (0.55-4.78); TOTAL PROTEIN 7.3 G/DL (5.7-8.2); TRIGLYCERIDES LEVEL 258 MG/DL (<150)
[2023-01-02 18:42] LABS: HEMOGLOBIN A1c 9.3 % (4.0-6.0)
== END ==
LOC: M SFHCCLAY 14:40
PROVIDERS: ATTEND Nurse Practitioner Family
DX: I10 Essential (primary) hypertension (principal); J45.909 Unspecified asthma, uncomplicated; R06.02 Shortness of breath; E11.9 Type 2 diabetes mellitus without complications; E78.2 Mixed hyperlipidemia; I25.10 Atherosclerotic heart disease of native coronary artery without angina pectoris; F10.10 Alcohol abuse, uncomplicated; K21.9 Gastro-esophageal reflux disease without esophagitis; I70.0 Atherosclerosis of aorta

== ENCOUNTER 2024-02-01 07:47 | Emergency (ER) | payer BC, OTHER ==
[~2024-02-01] VITALS: Ht 165.1 cm; Wt 111.3 kg
[~2024-02-01 07:47] MED LIST changes: -ROSU40TA4 PO; +ROSU40TA81 PO
[2024-02-01] MEDS: NS 1,000 ML IV ONE (09:53)
[2024-02-01 10:08] LABS: BASO # 0.1 10^3/uL (0.0-0.2); BASO % 0.8 % (0.0-1.0); EOS # 0.1 10^3/uL (0.0-0.5); EOS % 1.8 % (0.0-3.0); HEMATOCRIT 50.6 % (42.0-52.0); HEMOGLOBIN 16.8 g/dl (13.5-17.5); LYMPH # 1.9 10^3/uL (1.5-5.0); LYMPH % 23.7 % (24.0-44.0); MEAN CORPUSCULAR HEMOGLOBIN 30.3 pg (27.0-33.0); MEAN CORPUSCULAR HGB CONC 33.2 g/dl (32.0-36.5); MEAN CORPUSCULAR VOLUME 91.2 fl (80.0-96.0); MONO # 0.6 10^3/uL (0.0-0.8); MONO % 7.6 % (2.0-8.0); NEUTROPHILS # 5.2 10^3/uL (1.5-8.5); NEUTROPHILS % 65.5 % (36.0-66.0); PLATELET COUNT, AUTOMATED 250 10^3/uL (150-450); RED BLOOD COUNT 5.55 10^6/uL (4.30-6.10); WHITE BLOOD COUNT 7.9 10^3/uL (4.0-10.0)
[2024-02-01 10:31] LABS: LIPASE 121 U/L (12-53)
[2024-02-01 10:33] LABS: ALBUMIN 3.7 G/DL (3.2-5.2); ALKALINE PHOSPHATASE 84 U/L (46-116); ALT/SGPT 41 U/L (7.0-40); AST/SGOT 15 U/L (<34); BILIRUBIN,DIRECT 0.2 MG/DL (<0.4); BILIRUBIN,TOTAL 0.8 MG/DL (0.3-1.2); BLOOD UREA NITROGEN 13 MG/DL (9-23); CALCIUM LEVEL 9.6 MG/DL (8.5-10.1); CARBON DIOXIDE LEVEL 30 MMOL/L (20-31); CHLORIDE LEVEL 104 MMOL/L (98-107); CREATININE FOR GFR 0.64 MG/DL (0.70-1.30); GLOMERULAR FILTRATION RATE > 60.0 (>56); GLUCOSE, FASTING 138 MG/DL (60-100); POTASSIUM SERUM 3.7 MMOL/L (3.5-5.1); SODIUM LEVEL 137 MMOL/L (136-145)
[2024-02-01] MEDS: ONDANSETRON 4MG 2ML VIAL IV ONE (10:37)
[2024-02-01] MEDS: MORPHINE 2 MG/ML 1ML VIAL IV PRN (10:38)
[2024-02-01] MEDS ORDERED: ISOVUE-370 76% 100ML VIAL As Ordered ONE (10:41)
[2024-02-01] MEDS ORDERED: ONDA-282 PO (11:19)
[2024-02-01] MEDS ORDERED: CIPR-249 PO (11:19)
[2024-02-01] MEDS ORDERED: METR-265 PO (11:19)
[2024-02-01] MEDS: metroNIDAZOLE (FLAGYL) 500MG TABLET PO ONE (11:39)
[2024-02-01] MEDS: CIPROFLOXACIN 500MG TABLET PO ONE (11:39)
[2024-02-01 11:40] VITALS: BP 136/80; TEMP 98.1; O2SAT 98
== END 2024-02-01 11:43 | disposition home or self-care (01) ==
LOC: M ED 07:47
DX: K57.32 Diverticulitis of large intestine without perforation or abscess without bleeding (principal); E11.9 Type 2 diabetes mellitus without complications; I25.2 Old myocardial infarction; I10 Essential (primary) hypertension; E78.5 Hyperlipidemia, unspecified; F10.10 Alcohol abuse, uncomplicated; Z88.1 Allergy status to other antibiotic agents; Z88.8 Allergy status to other drugs, medicaments and biological substances; Z79.82 Long term (current) use of aspirin; Z79.4 Long term (current) use of insulin; Z79.2 Long term (current) use of antibiotics; Z79.899 Other long term (current) drug therapy
CPT/HCPCS: 74177; 80047; 80048; 80076; 81001; 83605; 83690; 85025; 96361; 96374; 96375; 99284; J2405; Q9967

== ENCOUNTER → 2024-02-07 | Outpatient (REF) | payer BC ==
[~2024-02-07] MED LIST changes: +CIPR-249 PO; +METR-265 PO; +ONDA-282 PO
[2024-02-07 19:13] LABS: BASO # 0.1 10^3/uL (0.0-0.2); BASO % 0.6 % (0.0-1.0); EOS # 0.3 10^3/uL (0.0-0.5); EOS % 2.3 % (0.0-3.0); HEMATOCRIT 51.8 % (42.0-52.0); HEMOGLOBIN 17.5 g/dl (13.5-17.5); LYMPH # 2.2 10^3/uL (1.5-5.0); LYMPH % 17.4 % (24.0-44.0); MEAN CORPUSCULAR HEMOGLOBIN 30.8 pg (27.0-33.0); MEAN CORPUSCULAR HGB CONC 33.8 g/dl (32.0-36.5); MONO % 7.9 % (2.0-8.0); NEUTROPHILS # 8.8 10^3/uL (1.5-8.5); NEUTROPHILS % 71.2 % (36.0-66.0); PLATELET COUNT, AUTOMATED 268 10^3/uL (150-450); RED BLOOD COUNT 5.69 10^6/uL (4.30-6.10); WHITE BLOOD COUNT 12.3 10^3/uL (4.0-10.0)
[2024-02-07 19:24] LABS: HEMOGLOBIN A1c 7.6 % (4.0-6.0)
[2024-02-07 19:37] LABS: LIPASE 59 U/L (12-53)
[2024-02-07 19:39] LABS: ALBUMIN 4.2 G/DL (3.2-5.2); ALKALINE PHOSPHATASE 84 U/L (46-116); ALT/SGPT 62 U/L (7.0-40); AST/SGOT 28 U/L (<34); BILIRUBIN,TOTAL 0.5 MG/DL (0.3-1.2); BLOOD UREA NITROGEN 16 MG/DL (9-23); CALCIUM LEVEL 10.1 MG/DL (8.5-10.1); CARBON DIOXIDE LEVEL 30 MMOL/L (20-31); CHLORIDE LEVEL 102 MMOL/L (98-107); CHOLESTEROL LEVEL 142 MG/DL (<200); CHOLESTEROL RISK RATIO 3.09 (<5); CREATININE FOR GFR 0.85 MG/DL (0.70-1.30); GLOMERULAR FILTRATION RATE > 60.0 (>56); GLUCOSE, FASTING 93 MG/DL (60-100); HDL CHOLESTEROL 45.9 MG/DL (>40); LDL CHOLESTEROL 69.7 MG/DL (<100); NON-HDL-C 96.1 MG/DL; POTASSIUM SERUM 3.8 MMOL/L (3.5-5.1); SODIUM LEVEL 139 MMOL/L (136-145); TOTAL PROTEIN 7.4 G/DL (5.7-8.2); TRIGLYCERIDES LEVEL 132 MG/DL (<150)
== END ==
LOC: M SFHCCLAY 13:40
PROVIDERS: ATTEND Nurse Practitioner Family
DX: E11.9 Type 2 diabetes mellitus without complications (principal); I10 Essential (primary) hypertension; R74.8 Abnormal levels of other serum enzymes

== ENCOUNTER → 2024-06-05 | Outpatient (REF) | payer BC ==
[2024-06-05 10:56] LABS: ALKALINE PHOSPHATASE 86 U/L (40-129); ALT/SGPT 21 U/L (7.0-40); AST/SGOT 10 U/L (<34); BILIRUBIN,TOTAL 0.4 MG/DL (0.3-1.2); BLOOD UREA NITROGEN 19 MG/DL (9-23); CALCIUM LEVEL 9.4 MG/DL (8.5-10.1); CARBON DIOXIDE LEVEL 29 MMOL/L (20-31); CHLORIDE LEVEL 103 MMOL/L (98-107); GLOMERULAR FILTRATION RATE > 60.0 (>56); GLUCOSE, FASTING 139 MG/DL (60-100); POTASSIUM SERUM 3.9 MMOL/L (3.5-5.1); SODIUM LEVEL 141 MMOL/L (136-145); TOTAL PROTEIN 7.6 G/DL (5.7-8.2)
[2024-06-05 12:02] LABS: HEMOGLOBIN A1c 7.4 % (4.0-6.0)
== END ==
LOC: M SFHCCLAY 07:43
PROVIDERS: ATTEND Nurse Practitioner Family
DX: E11.9 Type 2 diabetes mellitus without complications (principal)

== ENCOUNTER → 2024-08-27 | Outpatient (REF) | payer BC ==
[2024-08-27 12:30] LABS: BASO # 0.1 10^3/uL (0.0-0.2); BASO % 0.9 % (0.0-1.0); EOS # 0.3 10^3/uL (0.0-0.5); EOS % 2.8 % (0.0-3.0); HEMATOCRIT 51.8 % (42.0-52.0); HEMOGLOBIN 17.4 g/dl (13.5-17.5); LYMPH % 19.9 % (24.0-44.0); MEAN CORPUSCULAR HEMOGLOBIN 30.9 pg (27.0-33.0); MEAN CORPUSCULAR HGB CONC 33.6 g/dl (32.0-36.5); MONO # 0.8 10^3/uL (0.0-0.8); MONO % 8.2 % (2.0-8.0); NEUTROPHILS # 6.8 10^3/uL (1.5-8.5); NEUTROPHILS % 67.4 % (36.0-66.0); PLATELET COUNT, AUTOMATED 228 10^3/uL (150-450); RED BLOOD COUNT 5.63 10^6/uL (4.30-6.10); WHITE BLOOD COUNT 10.1 10^3/uL (4.0-10.0)
[2024-08-27 12:47] LABS: HEMOGLOBIN A1c 7.1 % (4.0-6.0)
[2024-08-27 12:49] LABS: PSA SCREENING 0.83 NG/ML (< 4.00)
[2024-08-27 12:53] LABS: THYROID STIMULATING HORMONE 1.919 uIU/ML (0.55-4.78)
[2024-08-27 12:54] LABS: CREATININE, URINE 55.9 MG/DL
[2024-08-27 12:55] LABS: MAU/CREAT RATIO 177.1 MCG/MG (0.0-30.0)
[2024-08-27 12:56] LABS: FREE T4 1.03 NG/DL (0.89-1.76)
[2024-08-27 12:58] LABS: ALBUMIN 3.9 G/DL (3.2-5.2); ALKALINE PHOSPHATASE 71 U/L (40-129); ALT/SGPT 38 U/L (7.0-40); AST/SGOT 15 U/L (<34); BILIRUBIN,TOTAL 0.5 MG/DL (0.3-1.2); BLOOD UREA NITROGEN 13 MG/DL (9-23); CALCIUM LEVEL 9.7 MG/DL (8.5-10.1); CARBON DIOXIDE LEVEL 28 MMOL/L (20-31); CHLORIDE LEVEL 102 MMOL/L (98-107); CHOLESTEROL LEVEL 172 MG/DL (<200); CHOLESTEROL RISK RATIO 3.43 (<5); CREATININE FOR GFR 0.66 MG/DL (0.70-1.30); GLOMERULAR FILTRATION RATE > 90.0 (>56); GLUCOSE, FASTING 131 MG/DL (60-100); HDL CHOLESTEROL 50.1 MG/DL (>40); LDL CHOLESTEROL 61.5 MG/DL (<100); NON-HDL-C 121.9 MG/DL; SODIUM LEVEL 140 MMOL/L (136-145); TOTAL PROTEIN 7.4 G/DL (5.7-8.2); TRIGLYCERIDES LEVEL 302 MG/DL (<150)
== END ==
LOC: M SFHCCLAY 09:12
PROVIDERS: ATTEND Nurse Practitioner Family
DX: R06.02 Shortness of breath (principal); I10 Essential (primary) hypertension; J45.909 Unspecified asthma, uncomplicated; E11.9 Type 2 diabetes mellitus without complications; E78.2 Mixed hyperlipidemia; I25.10 Atherosclerotic heart disease of native coronary artery without angina pectoris; F10.10 Alcohol abuse, uncomplicated; K21.9 Gastro-esophageal reflux disease without esophagitis; I70.0 Atherosclerosis of aorta; Z12.5 Encounter for screening for malignant neoplasm of prostate
CPT/HCPCS: 80053; 80061; 82043; 83036; 84439; 84443; 85025; G0103

== ENCOUNTER 2025-01-23 08:12 | Emergency (ER) | payer BC ==
[~2025-01-23] VITALS: Ht 165.1 cm; Wt 110.1 kg
[~2025-01-23 08:12] MED LIST changes: +FARX1TAB3 PO
[2025-01-23 08:44] LABS: BASO # 0.1 10^3/uL (0.0-0.2); BASO % 1.0 % (0.0-1.0); EOS # 0.2 10^3/uL (0.0-0.5); EOS % 2.4 % (0.0-3.0); LYMPH # 1.5 10^3/uL (1.5-5.0); LYMPH % 19.8 % (24.0-44.0); MONO # 0.6 10^3/uL (0.0-0.8); MONO % 7.3 % (2.0-8.0); NEUTROPHILS # 5.4 10^3/uL (1.5-8.5); NEUTROPHILS % 69.1 % (36.0-66.0); PLATELET COUNT, AUTOMATED 229 10^3/uL (150-450)
[2025-01-23 09:18] LABS: CALCIUM LEVEL 9.3 MG/DL (8.5-10.1); CARBON DIOXIDE LEVEL 26 MMOL/L (20-31); CHLORIDE LEVEL 101 MMOL/L (98-107); CK-MB VALUE MASS 3.8 NG/ML (<3.6); CREATININE FOR GFR 0.66 MG/DL (0.70-1.30); GLOMERULAR FILTRATION RATE > 90.0 (>56); POTASSIUM SERUM 4.3 MMOL/L (3.5-5.1); SODIUM LEVEL 138 MMOL/L (136-145)
[2025-01-23] MEDS: IPRATROPIUM 0.5 MG/ALBUTEROL 2.5 MG INH SOL UD 3 ML NEB ONE (09:29)
[2025-01-23 09:32] LABS: CPK CREATINE PHOSPHOKINASE 178 U/L (46-171); MB/CK RELATIVE INDEX 2.13 (< OR =4)
[2025-01-23] MEDS ORDERED: ISOVUE-370 76% 100 ML VIAL As Ordered ONE (10:48)
[2025-01-23 11:45] VITALS: BP 130/84; TEMP 97.8; O2SAT 97
== END 2025-01-23 11:53 | disposition home or self-care (01) ==
LOC: M ED 09:39
DX: R07.9 Chest pain, unspecified (principal); I44.4 Left anterior fascicular block; I25.2 Old myocardial infarction; I10 Essential (primary) hypertension; J45.909 Unspecified asthma, uncomplicated; E78.5 Hyperlipidemia, unspecified; F10.10 Alcohol abuse, uncomplicated; Z86.79 Personal history of other diseases of the circulatory system; Z88.8 Allergy status to other drugs, medicaments and biological substances; Z87.891 Personal history of nicotine dependence; Z79.82 Long term (current) use of aspirin; Z79.4 Long term (current) use of insulin; Z79.899 Other long term (current) drug therapy
CPT/HCPCS: 36415; 71045; 71275; 80048; 82550; 82553; 84484; 85025; 87486; 87581; 87633; 87798; 93005; 93041; 94640; 94760; 99285; Q9967